=== PATIENT | male | born 1930 | race Caucasian/White ===

== ENCOUNTER 2016-12-05 16:55 | Inpatient (IN) | payer OTHER, MEDICARE ==
--- NOTE | 2016-12-05 16:57 | EDPHY ---
H & P HPI/ROS: CHIEF COMPLAINT: Diarrhea, fever, weakness. HISTORY OF PRESENT ILLNESS: The patient is an 86-year-old male presenting via EMS for weakness, fever, and diarrhea. He reports that 2 days ago, prior to a dentist appointment, he was given 1gm of Amoxicillin. Later that day, he developed a fever and constipation. Today he developed watery diarrhea, 4 episodes. Associated with general weakness and difficulty walking because of weakness. He usually uses a cane to walk, but is now having difficulty even when he uses his walker. These symptoms are similar to a previous time he took Amoxicillin. He denies vomiting, dizziness, abdominal pain, or other complaints. He was able to eat and drink small amounts today. REVIEW OF SYSTEMS: A complete 10-point review of systems was performed and is negative except for those items mentioned in the HPI. Past Medical/Surgical History: Chronic kidney disease stage IV, pneumonia, hypertension, glaucoma, hyperlipidemia, kidney stone, prostatis hypertrophy, cholecystectomy. Social History: Here with family. Physical Exam: General Appearance: Alert, pleasant Eyes: Pupils equal and round, no conjunctival pallor ENT, Mouth: Mucous membranes slightly dry Neck: Normal inspection Respiratory: Rales at both bases Cardiovascular: Regular rate and rhythm Gastrointestinal: Abdomen is soft and non-tender Neurological: A&O, nonfocal exam, gait not assessed Skin: Warm and dry, no rash Extremities: Nontender, no pedal edema Psychiatric: Mood and affect normal Constitutional: Initial Vital Signs Temperature (C) 38 C 12/05/16 17:05 Heart Rate 66 12/05/16 17:05 Respiratory Rate 18 12/05/16 17:05 Blood Pressure 139/65 H 12/05/16 17:05 O2 Sat (%) 92 12/05/16 17:05 O2 Delivery Mode Room Air Allergies/Adverse Reactions: furosemide [From Lasix] Allergy (Intermediate, Verified 05/04/16 17:08) Rash BRIAN Inhibitors Allergy (Verified 05/04/16 17:08) Home Medications: Medication Instructions Recorded Aspirin [Ecotrin] 81 mg PO MWF@2100 04/05/12 Fenofibrate [Tricor 145 mg (*)] 145 mg PO DAILY 04/05/12 Pantoprazole Sodium [Protonix 40mg 40 mg PO DAILY 04/05/12 (*)] amLODIPine BESYLATE [Norvasc 5 mg 5 mg PO BID@08,12 04/05/12 (*)] Cholecalciferol Vit D3 [Vitamin D3 2,000 units PO DAILY 12/28/13 (*)] Ezetimibe [Zetia 10 MG (*)] 10 mg PO DAILY 12/28/13 Bimatoprost 0.01% [Lumigan 0.01% 1 drops EACHEYE HS 05/04/16 (*)] Brimonidine/Timolol [Combigan (*)] 1 drop EACHEYE BID 05/04/16 Tamsulosin HCl [Flomax 0.4 MG (*)] 0.4 mg PO DAILY@18 PRN 05/04/16 hydrALAZINE [Apresoline] 2.5 tab PO TID 05/04/16 Acetaminophen [Tylenol 325mg (*)] 650 mg PO Q6 #0 tab 05/10/16 Temazepam [Restoril 15 MG (*)] 15 mg PO HS PRN #0 cap 05/10/16 B&C/Ferrous Fum/FA/D3/Zinc Ox 2 each PO DAILY 12/05/16 [Prorenal Vital Multivit Tab] FLUOROURACIL [FLUOROURACIL] 1 applic TP BID 12/05/16 Psyllium Husk (with Sugar) 12 g PO DAILY PRN 12/05/16 [Metamucil Packet] Medical Decision Making ED Course/Re-evaluation: This patient presents with acute diarrhea after taking amoxicillin, concerning for C diff colitis. IV normal saline bolus given. The patient was unable to give us a stool sample during his emergency department stay. Given his generalized weakness and advanced age, he will need to be admitted for IV fluids and observation. 1745: Consulted with hospitalist. Dr. Quach accepts admission. Differential Diagnosis: Differential diagnosis includes though it is not limited to appendicitis, cholecystitis, diverticulitis, pyelonephritis, bowel perforation, small bowel obstruction. - Data Points Laboratory Results: Laboratory Results 12/05/16 16:56 12/05/16 16:56 Medications Given: Discontinued Medications Sodium Chloride (Ns) 1,000 mls @ 0 mls/hr IV ONCE ONE PRN Reason: Wide Open Stop: 12/05/16 17:06 Last Admin: 12/05/16 18:08 Dose: Not Given Sodium Chloride (Ns) 500 mls @ 1,000 mls/hr IV ONCE ONE Stop: 12/05/16 18:37 Last Admin: 12/05/16 18:09 Dose: 500 mls Departure - Departure Disposition: [facility] Acute Clinical Impression: Weakness Diarrhea Qualifiers: Diarrhea type: unspecified type Qualified Code(s): R19.7 - Diarrhea, unspecified Condition: Fair Report Scribed for: Mikayla Manuel Report Scribed by: Giorgio Jenkins Date of Report: 12/05/16 Time of Report: 16:54 Physician Review and Approval Statement: 12/05/16 16:54 Portions of this note were transcribed by a medical records field technician. I personally performed a history, physical exam, medical decision making, and confirmed accuracy of information the transcribed note.
[2016-12-05] MEDS ORDERED: NS 1,000 ML IV ONE (17:05)
[2016-12-05 17:28] LABS: % IMMATURE GRANULYOCYTES 0.5 % (0.0-1.1); ABSOLUTE IMMATURE GRANULOCYTES 0.05 10^3/uL (0.00-0.10); ADD DIFF? NO; ADD MORPH? NO; ADD SCAN? NO; ANION GAP 12 mEq/L (8-16); ATYPICAL LYMPHOCYTE FLAG 0 (0-99); CALCIUM 9.5 mg/dL (8.5-10.4); CARBON DIOXIDE 21 mEq/l (22-31); CHLORIDE 105 mEq/L (97-110); CREATININE 3.1 mg/dL (0.7-1.3); FRAGMENT RBC FLAG 0 (0-99); GLOMERULAR FILTRATION RATE 19; GLUCOSE 83 mg/dL (70-100); HEMATOCRIT 39.3 % (40.0-51.0); HEMOGLOBIN 13.1 g/dL (13.7-17.5); LEFT SHIFT FLG 0 (0-99); LIPEMIA HEMOLYSIS FLAG 80 (0-99); MEAN CELL HEMOGLOBIN 29.6 pg (27.9-34.1); MEAN CELL HEMOGLOBIN CONCENTR. 33.3 g/dL (32.4-36.7); MEAN CELL VOLUME 88.9 fL (81.5-99.8); MEAN PLATELET VOLUME 9.6 fL (8.7-11.7); PLATELET CLUMPS FLAG 10 (0-99); PLATELET COUNT 321 10^3/uL (150-400); POTASSIUM 4.4 mEq/L (3.5-5.2); RED BLOOD CELL COUNT 4.42 10^6/uL (4.40-6.38); SODIUM 138 mEq/L (134-144)
[2016-12-05] MEDS ORDERED: NS 500 ML IV ONE (18:08)
[2016-12-05] MEDS ORDERED: ONDANSETRON DISINTEGRATING 4 MG TAB PO PRN (18:22)
[2016-12-05] MEDS ORDERED: ONDANSETRON 4 MG/2 ML VIAL IVP PRN (18:22)
[2016-12-05 19:00] LABS: COLOR YELLOW; LEUKOCYTE ESTERASE,URINE NEGATIVE (NEGATIVE); NITRITE,URINE NEGATIVE (NEGATIVE)
--- NOTE | 2016-12-05 19:14 | GHP ---
DATE OF ADMISSION: 12/05/2016 CHIEF COMPLAINT: Diarrhea and weakness. HISTORY OF PRESENT ILLNESS: The patient is an 86-year-old male with history of CKD, hypertension and BPH presenting with weakness and diarrhea. Most of the history is per his daughter, whom he lives with. On Saturday prior to a dentist appointment he had been given 1 g of amoxicillin and then later started developing fevers. Today, he developed watery diarrhea, 4 episodes; no melena or bright red blood per rectum. Denies nausea and vomiting. Per daughter, temperature at home was 102 with chills. He denies chest pain, shortness of breath, cough or other URI symptoms. His grandson had a fever last week. Per daughter, he has not been as stable on his feet since the hip replacement in April. It has gotten worse over the last week. He uses a cane but has been now using his walker given increased weakness. Also endorses decreased p.o. intake. Mild headache today. Daughter reports he is having increased urinary incontinence over the last couple days. REVIEW OF SYSTEMS: I completed a 10-point review of systems, negative except as noted in HPI. PAST MEDICAL HISTORY: 1. CKD (baseline is 2.5 per review of old records.). 2. History of syncope. 3. History of constipation. 4. Hypertension. 5. Glaucoma. 6. BPH. 7. Pulmonary hypertension. 8. Actinic keratosis. PAST SURGICAL HISTORY: 1. Right hip replacement in April 2016. 2. Cholecystectomy. 3. Cataract surgery. FAMILY HISTORY: Mother with breast cancer. Father with CVA. ALLERGIES: BRIAN inhibitor and Lasix. MEDICATIONS: 1. Fluorouracil topical. 2. Tramadol 50 mg q.6h p.r.n. 3. Oxycodone 2.5-5 mg q.4. p.r.n. 4. Hydralazine 25 t.i.d. 5. Amlodipine 5 mg b.i.d. 6. Restoril 15 mg q.h.s. 7. Flomax 0.4 mg daily. 8. Senna b.i.d. 9. Promethazine as needed. 10. MiraLAX. 11. Protonix 40 mg daily. 12. [place] 5/325. 13. Vitamin D. 14. Combigan eyedrops. 15. Lumigan eyedrops. 16. Aspirin 81 mg Saturday. 17. Tylenol p.r.n. PHYSICAL EXAM: VITAL SIGNS: Temperature is 38.0, now 37.4, blood pressure 139/ 65, heart rate in the 60s. Respirations 18 and 92% on room air. GENERAL: Mildly diaphoretic, no acute distress. HEENT: PERRLA. EOMI. Dry mucous membranes. CARDIOVASCULAR: Regular rate and rhythm. No murmurs, gallops, or rubs. LUNGS: Few crackles, left lower lung base. ABDOMEN: Soft, nontender, nondistended. Positive bowel sounds. : No suprapubic or CVA tenderness. No [place]. MUSCULOSKELETAL: Moving all 4 extremities. NEURO: 2 through 12 intact. PSYCH: Alert and oriented x3. LABORATORY DATA: WBC 10.3, hemoglobin 13, hematocrit 39, platelets 321. Sodium 138, potassium 4.4, chloride 105, carbon dioxide 21, BUN is 39, creatinine is 3.9, glucose is 83, calcium is 9.5. UA is pending. ASSESSMENT AND PLAN: 1. Fever: Broad differential including gastroenteritis versus pneumonia versus urinary tract infection. Check Clostridium difficile and UA, CXR. Blood cultures are pending. Per daughter, PCP checked influenza and this was negative. 2. Diarrhea: Differential includes reaction to recent antibiotics vs. Clostridium difficile versus a viral infection. Supportive treatment with gentle IV fluids given chronic kidney disease. 3. Acute on chronic kidney disease: Creatinine is elevated 3.1, with a baseline of 2.5. This is due to decreased p.o. intake and diarrhea. Will hydrate gently. 4. Benign prostatic hypertrophy: Continue Flomax. 5. Benign hypertension. We will hold antihypertensives at this time. 6. Mild metabolic acidosis secondary to acute kidney injury and dehydration. Will give gentle IV fluids. 7. Glaucoma. Continue home eyedrops. 8. Chronic pain: Continue when medications. 9. Weakness: Denies recent falls. Suspect secondary to acute illness but not doing well since his surgery in April. Will consult PT/OT. 10. Diet: Regular. 11. Deep venous thrombosis prophylaxis: Subcutaneous heparin with chronic kidney disease. 12. Disposition: Patient warrants inpatient admission given inability to ambulate due to weakness. Warrants IV fluids and awaiting culture studies. /[id number]/MODL MTDD
[2016-12-05 19:35] LABS: WBC,URINE NONE SEEN /hpf (0-3)
[2016-12-05] MEDS ORDERED: PSYLLIUM METAMUCIL 1 PKT PO PRN (20:02)
[2016-12-05] MEDS ORDERED: TEMAZEPAM 15 MG CAP PO PRN (20:02)
[2016-12-05] MEDS: NS 1,000 ML IV SCH (21:04)
[2016-12-05] MEDS: HEPARIN 5,000 UNIT/0.5 ML SYR SC SCH (21:04)
[2016-12-05] MEDS: ASPIRIN EC 81 MG TAB PO SCH (21:04)
[2016-12-05] MEDS: FLUOROURACIL TP SCH (21:05)
[2016-12-05] MEDS: BRIMONIDINE/TIMOLOL 5 ML OPHT.BTL EACHEYE SCH (21:05)
[2016-12-06] MEDS: ACETAMINOPHEN 325 MG TAB PO PRN ×2 (00:56→14:13)
[2016-12-06 06:02] LABS: HEMATOCRIT 35.8 % (40.0-51.0); HEMOGLOBIN 11.6 g/dL (13.7-17.5); MEAN CELL HEMOGLOBIN 29.5 pg (27.9-34.1); MEAN CELL HEMOGLOBIN CONCENTR. 32.4 g/dL (32.4-36.7); MEAN CELL VOLUME 91.1 fL (81.5-99.8); RED BLOOD CELL COUNT 3.93 10^6/uL (4.40-6.38); RED CELL DISTRIBUTION WIDTH 14.7 % (11.5-15.2)
[2016-12-06 06:16] LABS: ANION GAP 9 mEq/L (8-16); CALCIUM 8.8 mg/dL (8.5-10.4); CARBON DIOXIDE 20 mEq/l (22-31); CHLORIDE 110 mEq/L (97-110); GLOMERULAR FILTRATION RATE 20; GLUCOSE 70 mg/dL (70-100); POTASSIUM 4.3 mEq/L (3.5-5.2); SODIUM 139 mEq/L (134-144)
[2016-12-06] MEDS: HEPARIN 5,000 UNIT/0.5 ML SYR SC SCH ×3 (07:36→22:28)
[2016-12-06] MEDS: EZETIMIBE 10 MG TAB PO SCH (09:53)
[2016-12-06] MEDS: CHOLECALCIFEROL VIT D3 2,000 UNITS TAB/CAP PO SCH (09:53)
[2016-12-06] MEDS: PANTOPRAZOLE SODIUM 40 MG TAB PO SCH (09:53)
[2016-12-06] MEDS: BRIMONIDINE/TIMOLOL 5 ML OPHT.BTL EACHEYE SCH ×2 (09:54→19:57)
[2016-12-06] MEDS: FENOFIBRATE 145 MG TAB PO SCH (09:59)
[2016-12-06] MEDS: [UNRECOGNIZED DRUG - MIXTURE] PO SCH (11:03)
[2016-12-06] MEDS: FLUOROURACIL TP SCH ×2 (11:03→19:58)
--- NOTE | 2016-12-06 13:56 | HOSPPROG ---
Hospitalist Progress Note Assessment/Plan: 86 yo M w ckfd admitted w nuase/vom/diarrhea/fever and JEANNE JEANNE: prenal continue ivf fever: suspect viral gastroenteritis cxr clear (interp bby me) no tooth or mouth pain UA w/out white cells diarrhea: check stool culture and cdiff proph: sc heparin CKD baseline 2.5 dispo: inpt glaucoma: eye drops Subjective: low grade temps this AM. diarrhea stopped. still nauseated Objective: Vital Signs Temp Pulse Resp BP Pulse Ox 37.7 C 67 20 152/69 H 95 12/06/16 11:00 12/06/16 09:05 12/06/16 09:05 12/06/16 09:05 12/06/16 09:05 Laboratory Results 12/06/16 05:05 12/06/16 05:05 12/05/16 12/06/16 12/07/16 05:59 05:59 05:59 Intake Total 1559 Output Total 775 800 Balance 784 -800 - Physical Exam Constitutional: no apparent distress, appears nourished Eyes: PERRL, anicteric sclera Ears, Nose, Mouth, Throat: moist mucous membranes, hearing normal Cardiovascular: regular rate and rhythym, no murmur, rub, or gallop Respiratory: no respiratory distress, no rales or rhonchi, clear to auscultation Gastrointestinal: distension (soft, + BS, no rebound or guard), other Genitourinary: No reid in urethra Skin: warm, normal color Musculoskeletal: full muscle strength, no muscle tenderness Neurologic: AAOx3, sensation intact bilaterally ICD10 Worksheet Patient Problems: Problems Problem Status Onset Diarrhea Acute Weakness Acute Hyperplasia of prostate Active Renal failure syndrome Active Retention of urine Active Urinary tract infectious disease Active chronic renal Active Chronic kidney disease Acute Fall Acute Fracture of femoral neck, right, closed Acute
[2016-12-06] MEDS ORDERED: TAMSULOSIN HCL 0.4 MG CAP PO PRN (18:00)
[2016-12-06] MEDS: BIMATOPROST 0.01% 2.5 ML OPHT.BTL EACHEYE SCH (22:28)
[2016-12-07] MEDS: HEPARIN 5,000 UNIT/0.5 ML SYR SC SCH ×3 (04:58→20:16)
[2016-12-07] MEDS: NS 1,000 ML IV SCH (04:58)
[2016-12-07 06:21] LABS: ANION GAP 10 mEq/L (8-16); CALCIUM 8.8 mg/dL (8.5-10.4); CARBON DIOXIDE 19 mEq/l (22-31); CHLORIDE 110 mEq/L (97-110); CREATININE 2.8 mg/dL (0.7-1.3); GLOMERULAR FILTRATION RATE 21; GLUCOSE 88 mg/dL (70-100); POTASSIUM 4.3 mEq/L (3.5-5.2); SODIUM 139 mEq/L (134-144)
[2016-12-07] MEDS: EZETIMIBE 10 MG TAB PO SCH (08:30)
[2016-12-07] MEDS: PANTOPRAZOLE SODIUM 40 MG TAB PO SCH (08:31)
[2016-12-07] MEDS: CHOLECALCIFEROL VIT D3 2,000 UNITS TAB/CAP PO SCH (08:31)
[2016-12-07] MEDS: FENOFIBRATE 145 MG TAB PO SCH (08:31)
[2016-12-07] MEDS: [UNRECOGNIZED DRUG - MIXTURE] PO SCH (12:20)
[2016-12-07] MEDS: BRIMONIDINE/TIMOLOL 5 ML OPHT.BTL EACHEYE SCH ×2 (14:12→20:18)
[2016-12-07] MEDS: FLUOROURACIL TP SCH ×3 (14:13→20:18)
--- NOTE | 2016-12-07 15:20 | HOSPPROG ---
Hospitalist Progress Note Assessment/Plan: 86 yo M w ckfd admitted w nuase/vom/diarrhea/fever and JEANNE JEANNE: prenal continue ivf approaching baseline of 2.5 fever: suspect viral gastroenteritis cxr clear (interp bby me) no tooth or mouth pain UA w/out white cells diarrhea: cdiff + start po vanc proph: sc heparin CKD baseline 2.5 dispo: inpt glaucoma: eye drops Subjective: stool + for cdiff. feeling a bit better Objective: Vital Signs Temp Pulse Resp BP Pulse Ox 36.8 C 62 18 128/76 H 94 12/07/16 08:15 12/07/16 08:15 12/07/16 08:15 12/07/16 08:15 12/07/16 09:27 Laboratory Results 12/06/16 05:05 12/07/16 05:25 12/06/16 12/07/16 12/08/16 05:59 05:59 05:59 Intake Total 1559 1600 Output Total 775 2300 475 Balance 784 -012 -641 - Physical Exam Constitutional: no apparent distress, appears nourished Eyes: PERRL, anicteric sclera Ears, Nose, Mouth, Throat: moist mucous membranes, hearing normal Cardiovascular: regular rate and rhythym, no murmur, rub, or gallop Respiratory: no respiratory distress, no rales or rhonchi Gastrointestinal: normoactive bowel sounds, soft, non-tender abdomen Genitourinary: No reid in urethra Skin: warm, normal color Musculoskeletal: full muscle strength Neurologic: AAOx3 ICD10 Worksheet Patient Problems: Problems Problem Status Onset C. difficile diarrhea Acute ~12/07/16 Diarrhea Acute Weakness Acute Hyperplasia of prostate Active Renal failure syndrome Active Retention of urine Active Urinary tract infectious disease Active chronic renal Active Chronic kidney disease Acute Fall Acute Fracture of femoral neck, right, closed Acute
[2016-12-07] MEDS: VANCOMYCIN 125 MG/2.5 ML UDL PO SCH ×2 (15:29→20:17)
[2016-12-07] MEDS: ASPIRIN EC 81 MG TAB PO SCH (20:16)
[2016-12-07] MEDS: BIMATOPROST 0.01% 2.5 ML OPHT.BTL EACHEYE SCH (20:18)
[2016-12-08] MEDS: NS 1,000 ML IV SCH (00:05)
[2016-12-08] MEDS: HEPARIN 5,000 UNIT/0.5 ML SYR SC SCH ×3 (05:05→20:13)
[2016-12-08] MEDS: VANCOMYCIN 125 MG/2.5 ML UDL PO SCH ×4 (05:06→20:13)
[2016-12-08 05:30] LABS: ANION GAP 9 mEq/L (8-16); CALCIUM 8.7 mg/dL (8.5-10.4); CARBON DIOXIDE 18 mEq/l (22-31); CHLORIDE 111 mEq/L (97-110); CREATININE 2.5 mg/dL (0.7-1.3); GLOMERULAR FILTRATION RATE 24; GLUCOSE 84 mg/dL (70-100); POTASSIUM 4.6 mEq/L (3.5-5.2); SODIUM 138 mEq/L (134-144)
[2016-12-08] MEDS: EZETIMIBE 10 MG TAB PO SCH (10:16)
[2016-12-08] MEDS: FENOFIBRATE 145 MG TAB PO SCH (10:16)
[2016-12-08] MEDS: CHOLECALCIFEROL VIT D3 2,000 UNITS TAB/CAP PO SCH (10:16)
[2016-12-08] MEDS: [UNRECOGNIZED DRUG - MIXTURE] PO SCH (10:16)
[2016-12-08] MEDS: PANTOPRAZOLE SODIUM 40 MG TAB PO SCH (10:16)
[2016-12-08] MEDS: BRIMONIDINE/TIMOLOL 5 ML OPHT.BTL EACHEYE SCH ×2 (10:22→20:13)
[2016-12-08] MEDS: FLUOROURACIL TP SCH ×2 (12:39→20:12)
--- NOTE | 2016-12-08 13:05 | HOSPPROG ---
Hospitalist Progress Note Assessment/Plan: 86 yo M w ckfd admitted w nuase/vom/diarrhea/fever and JEANNE JEANNE: prenal at baseline dc IVF fever: cdiff prophylactic abx prior to dental procedure: this is 2/2 prosthetic hip guidelines do not support antibiotic prophylaxis in this setting htn: restart meds diarrhea: cdiff + start po vanc proph: sc heparin CKD baseline 2.5 dispo: inpt glaucoma: eye drops Subjective: diarrhea decreased. weak Objective: Vital Signs Temp Pulse Resp BP Pulse Ox 36.8 C 58 L 16 149/79 H 96 12/08/16 08:54 12/08/16 09:50 12/08/16 08:54 12/08/16 08:54 12/08/16 09:50 Laboratory Results 12/06/16 05:05 12/08/16 04:35 12/07/16 12/08/16 12/09/16 05:59 05:59 05:59 Intake Total 1600 1801 Output Total 2300 1175 Balance -700 626 - Physical Exam Constitutional: no apparent distress, appears nourished Eyes: PERRL, anicteric sclera Ears, Nose, Mouth, Throat: moist mucous membranes, hearing normal, no oral mucosal ulcers, No oral thrush Cardiovascular: no murmur, rub, or gallop, systolic murmur Respiratory: no respiratory distress, no rales or rhonchi Gastrointestinal: normoactive bowel sounds, soft, non-tender abdomen, No guarding, No rebound Genitourinary: no bladder fullness, No reid in urethra Skin: warm, normal color Musculoskeletal: No full muscle strength Neurologic: AAOx3 ICD10 Worksheet Patient Problems: Problems Problem Status Onset C. difficile diarrhea Acute ~12/07/16 Diarrhea Acute Weakness Acute Hyperplasia of prostate Active Renal failure syndrome Active Retention of urine Active Urinary tract infectious disease Active chronic renal Active Chronic kidney disease Acute Fall Acute Fracture of femoral neck, right, closed Acute
[2016-12-08] MEDS: hydrALAZINE 25 MG TAB PO SCH ×2 (16:30→20:19)
[2016-12-08] MEDS: BIMATOPROST 0.01% 2.5 ML OPHT.BTL EACHEYE SCH (20:12)
[2016-12-09] MEDS: HEPARIN 5,000 UNIT/0.5 ML SYR SC SCH ×3 (05:02→21:43)
[2016-12-09] MEDS: VANCOMYCIN 125 MG/2.5 ML UDL PO SCH ×4 (05:03→21:43)
[2016-12-09] MEDS: CHOLECALCIFEROL VIT D3 2,000 UNITS TAB/CAP PO SCH (08:48)
[2016-12-09] MEDS: EZETIMIBE 10 MG TAB PO SCH (08:48)
[2016-12-09] MEDS: PANTOPRAZOLE SODIUM 40 MG TAB PO SCH (08:48)
[2016-12-09] MEDS: FENOFIBRATE 145 MG TAB PO SCH (08:48)
[2016-12-09] MEDS: amLODIPine BESYLATE 5 MG TAB PO SCH ×2 (08:48→12:43)
[2016-12-09] MEDS: hydrALAZINE 25 MG TAB PO SCH ×3 (08:48→21:43)
[2016-12-09] MEDS: [UNRECOGNIZED DRUG - MIXTURE] PO SCH (08:49)
[2016-12-09] MEDS: BRIMONIDINE/TIMOLOL 5 ML OPHT.BTL EACHEYE SCH ×2 (08:52→21:45)
--- NOTE | 2016-12-09 12:55 | HOSPPROG ---
Hospitalist Progress Note Assessment/Plan: 86 yo M w ckfd admitted w nuase/vom/diarrhea/fever and JEANNE JEANNE: prenal at baseline dc IVF fever: cdiff prophylactic abx prior to dental procedure: this is 2/2 prosthetic hip guidelines do not support antibiotic prophylaxis in this setting htn: restart meds diarrhea: cdiff + start po vanc day 3 po vanc proph: sc heparin CKD baseline 2.5 dispo: await snf glaucoma: eye drops Subjective: diarrhea resolved Objective: Vital Signs Temp Pulse Resp BP Pulse Ox 36.8 C 58 L 20 158/87 H 91 L 12/09/16 08:26 12/09/16 08:26 12/09/16 08:26 12/09/16 12:43 12/09/16 08:26 Laboratory Results 12/06/16 05:05 12/08/16 04:35 12/08/16 12/09/16 12/10/16 05:59 05:59 05:59 Intake Total 1801 1600 Output Total 1175 720 400 Balance 626 880 -400 - Physical Exam Constitutional: no apparent distress, appears nourished Eyes: PERRL, anicteric sclera Ears, Nose, Mouth, Throat: moist mucous membranes, hearing normal Cardiovascular: regular rate and rhythym, no murmur, rub, or gallop Respiratory: no respiratory distress, no rales or rhonchi Gastrointestinal: No guarding, No rebound Genitourinary: No reid in urethra Skin: warm, normal color Musculoskeletal: full muscle strength Neurologic: AAOx3 ICD10 Worksheet Patient Problems: Problems Problem Status Onset C. difficile diarrhea Acute ~12/07/16 Diarrhea Acute Weakness Acute Hyperplasia of prostate Active Renal failure syndrome Active Retention of urine Active Urinary tract infectious disease Active chronic renal Active Chronic kidney disease Acute Fall Acute Fracture of femoral neck, right, closed Acute
[2016-12-09] MEDS: FLUOROURACIL TP SCH ×2 (12:56→21:45)
[2016-12-09] MEDS: BIMATOPROST 0.01% 2.5 ML OPHT.BTL EACHEYE SCH (21:45)
[2016-12-10 06:14] VITALS: TEMP 97.8
[2016-12-10] MEDS: HEPARIN 5,000 UNIT/0.5 ML SYR SC SCH ×2 (06:19→13:30)
[2016-12-10] MEDS: VANCOMYCIN 125 MG/2.5 ML UDL PO SCH ×2 (06:19→12:27)
[2016-12-10 07:35] VITALS: RESP 22
[2016-12-10] MEDS: FENOFIBRATE 145 MG TAB PO SCH (08:26)
[2016-12-10] MEDS: EZETIMIBE 10 MG TAB PO SCH (08:27)
[2016-12-10] MEDS: CHOLECALCIFEROL VIT D3 2,000 UNITS TAB/CAP PO SCH (08:27)
[2016-12-10] MEDS: PANTOPRAZOLE SODIUM 40 MG TAB PO SCH (08:27)
[2016-12-10] MEDS: amLODIPine BESYLATE 5 MG TAB PO SCH ×2 (08:29→12:34)
[2016-12-10] MEDS: hydrALAZINE 25 MG TAB PO SCH (08:30)
[2016-12-10] MEDS: BRIMONIDINE/TIMOLOL 5 ML OPHT.BTL EACHEYE SCH (08:33)
[2016-12-10] MEDS: FLUOROURACIL TP SCH (08:37)
--- NOTE | 2016-12-10 09:52 | PDDCSUM ---
Discharge Summary Discharge Summary: Dates of service 12/05-11/30/16 Discharge dx: # c diff colitis # jeanne on ckd # generalized weakness # htn Consultations/procedures: none Hospital course by problem: c diff: with diarrhea decreasing, will continue PO vanc x total 10 days, triggered by abx use JEANNE on CKD: pre renal in setting of above, back to baseline creatinine of 2.5 fever: cdiff prophylactic abx prior to dental procedure: this is 2/2 prosthetic hip guidelines do not support antibiotic prophylaxis in this setting htn: continue home meds Dispo: dc to snf Meds: see EHR > 35 minutes spent in dc of patient more than half in coordination of care and face to face counseling of patient and his family
[2016-12-10] MEDS: [UNRECOGNIZED DRUG - MIXTURE] PO SCH (10:44)
--- NOTE | 2016-12-10 11:08 | PDIAF ---
- Diagnosis Code Status: Do Not Resuscitate - Medication Management Discharge Medications: Medications to Continue on Transfer Aspirin [Ecotrin] 81 mg PO MWF@2100 04/05/12 [Last Taken 12/05/16] Fenofibrate [Tricor 145 mg (*)] 145 mg PO DAILY 04/05/12 [Last Taken 12/05/16] Pantoprazole Sodium [Protonix 40mg (*)] 40 mg PO DAILY 04/05/12 [Last Taken ] amLODIPine BESYLATE [Norvasc 5 mg (*)] 5 mg PO BID@08,12 04/05/12 [Last Taken ] Cholecalciferol Vit D3 [Vitamin D3 (*)] 2,000 units PO DAILY 12/28/13 [Last Taken 12/05/16] Ezetimibe [Zetia 10 MG (*)] 10 mg PO DAILY 12/28/13 [Last Taken 12/05/16] Bimatoprost 0.01% [Lumigan 0.01% (*)] 1 drops EACHEYE HS 05/04/16 [Last Taken ] Brimonidine/Timolol [Combigan (*)] 1 drop EACHEYE BID 05/04/16 [Last Taken 12/05] Tamsulosin HCl [Flomax 0.4 MG (*)] 0.4 mg PO DAILY@18 PRN 05/04/16 [Last Taken 05/02/16] hydrALAZINE [Apresoline] 2.5 tab PO TID 05/04/16 [Last Taken 12/05/16] Acetaminophen [Tylenol 325mg (*)] 650 mg PO Q6 #0 tab 05/10/16 [Last Taken Unknown] Temazepam [Restoril 15 MG (*)] 15 mg PO HS PRN #0 cap 05/10/16 [Last Taken Unknown] B&C/Ferrous Fum/FA/D3/Zinc Ox [Prorenal Multivitamin Tablet] 2 each PO DAILY [Last Taken Unknown] FLUOROURACIL 1 applic TP BID 12/05/16 [Last Taken 12/05/16] Psyllium Husk (with Sugar) [Metamucil Packet] 12 g PO DAILY PRN 12/05/16 [Last Taken Unknown] Vancomycin [Vancocin Oral Liquid] 250 mg PO QID 5 Days 12/10/16 [Last Taken Unknown] Discharge Medications: Refer to the Discharge Home Medication list for PRN reason. - Orders Services needed: Registered Nurse, Certified Field Human Resources Manager, Physical Therapy, Occupational Therapy Diet Recommendation: no restrictions on diet - Labs/Radiology BMP Date: 12/17/16 - Follow Up Care Current Providers and Referrals: Ra Beltran MD [Primary Care Provider] - As per Instructions
[2016-12-10 12:30] VITALS: BP 111/63; PULSE 52
[2016-12-10 13:38] VITALS: O2SAT 93
== END 2016-12-10 14:05 | DRG 372 ==
LOC: EDUNIT# → F1N 18:25
PROVIDERS: ADMIT Internal Medicine; ATTEND Internal Medicine
DX: A04.7 Enterocolitis due to Clostridium difficile (principal); N17.9 Acute kidney failure, unspecified; E87.2 Acidosis; I12.9 Hypertensive chronic kidney disease with stage 1 through stage 4 chronic kidney disease, or unspecified chronic kidney disease; N18.4 Chronic kidney disease, stage 4 (severe); E78.5 Hyperlipidemia, unspecified; N40.0 Benign prostatic hyperplasia without lower urinary tract symptoms; Z87.01 Personal history of pneumonia (recurrent); Z96.641 Presence of right artificial hip joint; Z87.442 Personal history of urinary calculi
CPT/HCPCS: 97116-GP; 97161-GP; 97166-GO; 97530-GP; 97535-GO; G8978-GP-CJ; G8979-GP-CI; G8987-GO-CJ; G8988-GO-CI

== ENCOUNTER 2017-01-11 15:35 | Emergency (ER) | payer OTHER, MEDICARE ==
[2017-01-11 15:45] VITALS: TEMP 98.1
--- NOTE | 2017-01-11 15:53 | EDPHY ---
H & P Stated Complaint: fever /weak Time Seen by Provider: 01/11/17 15:52 HPI/ROS: CHIEF COMPLAINT: Fever, malaise HISTORY OF PRESENT ILLNESS: The patient presents to the ED for evaluation of fever and malaise for the past 2 days. The patient denies nausea, vomiting, diarrhea, pain, dysuria, cough, rash or other localizing source of infection. Patient did have a history of C diff colitis treated approximately 1 month ago. The patient has a history of chronic renal insufficiency. The patient denies recent travel outside the [place] or surgical procedures. REVIEW OF SYSTEMS: A comprehensive 10 point review of systems is otherwise negative aside from elements mentioned in the history of present illness. Source: Patient Exam Limitations: No limitations - Personal History Current Tetanus/Diphtheria Vaccine: Unsure - Medical/Surgical History Hx Asthma: No Hx Chronic Respiratory Disease: No Hx Diabetes: No Hx Cardiac Disease: Yes Hx Renal Disease: Yes Hx Cirrhosis: No Hx Alcoholism: No Hx HIV/AIDS: No Hx Splenectomy or Spleen Trauma: No Other PMH: MEDICAL- ESRD, HTN, HLD, KIDNEY STONES, UTI. SURGICAL- LITHOTRIPSY, CATARACT/renal failure - Social History Smoking Status: Former smoker - Physical Exam Exam: General Appearance: Alert, no distress Eyes: Pupils equal and round no pallor or injection ENT, Mouth: Mucous membranes moist Respiratory: There are no retractions, lungs are clear to auscultation Cardiovascular: Regular rate and rhythm Gastrointestinal: Abdomen is soft and nontender, no masses, bowel sounds normal Neurological: A&O, normal motor function, normal sensory exam, normal cranial nerves Skin: Warm and dry, no rashes Musculoskeletal: Neck is supple nontender Extremities: symmetrical, full range of motion Constitutional: Initial Vital Signs Temperature (C) 36.7 C 01/11/17 15:43 Heart Rate 83 01/11/17 15:43 Respiratory Rate 23 H 01/11/17 15:43 Blood Pressure 103/53 L 01/11/17 15:43 O2 Sat (%) 92 01/11/17 15:43 O2 Delivery Mode Room Air Allergies/Adverse Reactions: furosemide [From Lasix] Allergy (Intermediate, Verified 01/11/17 15:42) Rash BRIAN Inhibitors Allergy (Verified 01/11/17 15:42) Home Medications: Medication Instructions Recorded Aspirin [Ecotrin] 81 mg PO MWF@2100 04/05/12 Fenofibrate [Tricor 145 mg (*)] 145 mg PO DAILY 04/05/12 Pantoprazole Sodium [Protonix 40mg 40 mg PO DAILY 04/05/12 (*)] amLODIPine BESYLATE [Norvasc 5 mg 5 mg PO BID@08,12 04/05/12 (*)] Cholecalciferol Vit D3 [Vitamin D3 2,000 units PO DAILY 12/28/13 (*)] Ezetimibe [Zetia 10 MG (*)] 10 mg PO DAILY 12/28/13 Bimatoprost 0.01% [Lumigan 0.01% 1 drops EACHEYE HS 05/04/16 (*)] Brimonidine/Timolol [Combigan (*)] 1 drop EACHEYE BID 05/04/16 Tamsulosin HCl [Flomax 0.4 MG (*)] 0.4 mg PO DAILY@18 PRN 05/04/16 hydrALAZINE [Apresoline] 2.5 tab PO TID 05/04/16 Acetaminophen [Tylenol 325mg (*)] 650 mg PO Q6 #0 tab 05/10/16 Temazepam [Restoril 15 MG (*)] 15 mg PO HS PRN #0 cap 05/10/16 B,C/Ferrous Fum/FA/D3/Zinc Ox 2 each PO DAILY 12/05/16 [Prorenal Multivitamin Tablet] FLUOROURACIL 1 applic TP BID 12/05/16 Psyllium Husk (with Sugar) 12 g PO DAILY PRN 12/05/16 [Metamucil Packet] Medical Decision Making ED Course/Re-evaluation: The patient presents to the ED for evaluation of a fever for the past 2 days with reported temperatures up to 102.5 at home. The patient has no localizing signs of infection in the ED. The patient is noted to have chronic renal insufficiency with a creatinine of 2.3. I reviewed the patient's past medical records including his hospitalization in November. The patient had blood cultures x2 obtained. The patient presents to the ED with a 2 day history of fever without source. The patient is afebrile in the emergency department. He does have a slight leukocytosis. His venous lactate is reassuring and normal. The patient does have chronic renal insufficiency. His urinalysis demonstrates no evidence of an infection. The patient has no pulmonary complaints cough, congestion or dyspnea. The patient did have an IV established. He received 2 L of normal saline. The patient was re-evaluated at 6:30 p.m.. He continues to be afebrile and has been afebrile throughout his stay in the ED. At this point time the source of his fever is uncertain. Blood cultures are pending. The patient was offered admission to the hospital however he prefers to go home. I do feel that this is reasonable. He is quite comfortable returning for any progressive symptoms, development of new symptoms such as cough rash or severe headache. Or generalized worsening conditions. Differential Diagnosis: Differential diagnosis considered includes urinary tract infection, renal failure, bacteremia, viral syndrome, metabolic abnormality - Data Points Laboratory Results: Laboratory Results 01/11/17 16:00 01/11/17 16:00 01/11/17 01/11/17 01/11/17 17:42 16:00 16:00 WBC 14.47 10^3/uL H 10^3/uL (3.80-9.50) RBC 4.21 10^6/uL L 10^6/uL (4.40-6.38) Hgb 12.5 g/dL L g/dL (13.7-17.5) Hct 37.3 % L % (40.0-51.0) MCV 88.6 fL fL (81.5-99.8) MCH 29.7 pg pg (27.9-34.1) MCHC 33.5 g/dL g/dL (32.4-36.7) RDW 14.8 % % (11.5-15.2) Plt Count 318 10^3/uL 10^3/uL (150-400) MPV 9.6 fL fL (8.7-11.7) Neut % (Auto) 78.4 % H % (39.3-74.2) Lymph % (Auto) 8.4 % L % (15.0-45.0) [place] % (Auto) 10.0 % % (4.5-13.0) Eos % (Auto) 2.0 % % (0.6-7.6) Baso % (Auto) 0.5 % % (0.3-1.7) Nucleat RBC Rel Count 0.0 % % (0.0-0.2) Absolute Neuts (auto) 11.35 10^3/uL H 10^3/uL (1.70-6.50) Absolute Lymphs (auto) 1.22 10^3/uL 10^3/uL (1.00-3.00) Absolute Monos (auto) 1.44 10^3/uL H 10^3/uL (0.30-0.80) Absolute Eos (auto) 0.29 10^3/uL 10^3/uL (0.03-0.40) Absolute Basos (auto) 0.07 10^3/uL 10^3/uL (0.02-0.10) Absolute Nucleated RBC 0.00 10^3/uL 10^3/uL (0-0.01) Immature Gran % 0.7 % % (0.0-1.1) Immature Gran # 0.10 10^3/uL 10^3/uL (0.00-0.10) VBG Lactic Acid Sodium 133 mEq/L L mEq/L (134-144) Potassium 4.7 mEq/L mEq/L (3.5-5.2) Chloride 103 mEq/L mEq/L (97-110) Carbon Dioxide 19 mEq/l L mEq/l (22-31) Anion Gap 11 mEq/L mEq/L (8-16) BUN 31 mg/dL H mg/dL (7-23) Creatinine 2.3 mg/dL H mg/dL (0.7-1.3) Estimated GFR 27 Glucose 121 mg/dL H mg/dL (70-100) Calcium 9.4 mg/dL mg/dL (8.5-10.4) Urine Color YELLOW Urine Appearance CLEAR Urine pH 5.0 (5.0-7.5) Ur Specific [place] 1.014 (1.002-1.030) Urine Protein 2+ H (NEGATIVE) Urine Ketones NEGATIVE (NEGATIVE) Urine Blood NEGATIVE (NEGATIVE) Urine Nitrate NEGATIVE (NEGATIVE) Urine Bilirubin NEGATIVE (NEGATIVE) Urine Urobilinogen NEGATIVE EU EU (0.2-1.0) Ur Leukocyte Esterase NEGATIVE (NEGATIVE) Urine RBC 1-3 /hpf /hpf (0-3) Urine WBC 1-3 /hpf /hpf (0-3) Ur Epithelial Cells TRACE /lpf /lpf (NONE-1+) Urine Mucus TRACE /lpf /lpf (NONE-1+) Ur Culture Indicated? NOT INDICATED (NI) Urine Glucose NEGATIVE (NEGATIVE) 01/11/17 16:00 WBC RBC Hgb Hct MCV MCH MCHC RDW Plt Count MPV Neut % (Auto) Lymph % (Auto) [place] % (Auto) Eos % (Auto) Baso % (Auto) Nucleat RBC Rel Count Absolute Neuts (auto) Absolute Lymphs (auto) Absolute Monos (auto) Absolute Eos (auto) Absolute Basos (auto) Absolute Nucleated RBC Immature Gran % Immature Gran # VBG Lactic Acid 0.9 mmol/L mmol/L (0.7-2.1) Sodium Potassium Chloride Carbon Dioxide Anion Gap BUN Creatinine Estimated GFR Glucose Calcium Urine Color Urine Appearance Urine pH Ur Specific [place] Urine Protein Urine Ketones Urine Blood Urine Nitrate Urine Bilirubin Urine Urobilinogen Ur Leukocyte Esterase Urine RBC Urine WBC Ur Epithelial Cells Urine Mucus Ur Culture Indicated? Urine Glucose Medications Given: Discontinued Medications Sodium Chloride (Ns) 1,000 mls @ 0 mls/hr IV ONCE ONE PRN Reason: Wide Open Stop: 01/11/17 17:25 Last Admin: 01/11/17 17:27 Dose: 1,000 mls Departure - Departure Disposition: Home, Routine, Self-Care Clinical Impression: Viral syndrome, Fever Condition: Good Instructions: Fever in Adults (ED) Additional Instructions: 1. Please return to the emergency department for worsening symptoms, cough, rash or other concerns. 2. Please follow up with your primary care provider as scheduled. 3. Tylenol as needed for fever. Referrals: Ra Beltran MD [Primary Care Provider] - As per Instructions
[2017-01-11 16:21] LABS: % IMMATURE GRANULYOCYTES 0.7 % (0.0-1.1); ADD DIFF? NO; ADD MORPH? NO; ADD SCAN? NO; ATYPICAL LYMPHOCYTE FLAG 0 (0-99); FRAGMENT RBC FLAG 0 (0-99); HEMATOCRIT 37.3 % (40.0-51.0); HEMOGLOBIN 12.5 g/dL (13.7-17.5); LEFT SHIFT FLG 10 (0-99); LIPEMIA HEMOLYSIS FLAG 80 (0-99); MEAN CELL HEMOGLOBIN 29.7 pg (27.9-34.1); MEAN CELL HEMOGLOBIN CONCENTR. 33.5 g/dL (32.4-36.7); MEAN CELL VOLUME 88.6 fL (81.5-99.8); MEAN PLATELET VOLUME 9.6 fL (8.7-11.7); PLATELET CLUMPS FLAG 10 (0-99); PLATELET COUNT 318 10^3/uL (150-400); RED BLOOD CELL COUNT 4.21 10^6/uL (4.40-6.38); RED CELL DISTRIBUTION WIDTH 14.8 % (11.5-15.2)
[2017-01-11 16:32] LABS: ANION GAP 11 mEq/L (8-16); CALCIUM 9.4 mg/dL (8.5-10.4); CARBON DIOXIDE 19 mEq/l (22-31); CHLORIDE 103 mEq/L (97-110); CREATININE 2.3 mg/dL (0.7-1.3); GLOMERULAR FILTRATION RATE 27; GLUCOSE 121 mg/dL (70-100); POTASSIUM 4.7 mEq/L (3.5-5.2); SODIUM 133 mEq/L (134-144)
[2017-01-11] MEDS ORDERED: NS 1,000 ML IV ONE (17:24)
[2017-01-11 18:00] LABS: COLOR YELLOW; LEUKOCYTE ESTERASE,URINE NEGATIVE (NEGATIVE); NITRITE,URINE NEGATIVE (NEGATIVE)
[2017-01-11 18:04] LABS: MUCUS TRACE /lpf (NONE-1+)
[2017-01-11 18:46] VITALS: BP 120/68; PULSE 69; RESP 18; O2SAT 93
== END 2017-01-11 18:44 | disposition home or self-care (01) ==
DX: B34.9 Viral infection, unspecified (principal); I12.0 Hypertensive chronic kidney disease with stage 5 chronic kidney disease or end stage renal disease; N18.6 End stage renal disease; Z87.891 Personal history of nicotine dependence; Z79.82 Long term (current) use of aspirin

== ENCOUNTER 2017-06-09 16:57 | Emergency (ER) | payer OTHER, MEDICARE ==
--- NOTE | 2017-06-09 17:04 | EDPHY ---
H & P Time Seen by Provider: 06/09/17 17:00 HPI/ROS: CHIEF COMPLAINT: Fever, cough HISTORY OF PRESENT ILLNESS: The patient presents to the ED on a 2-3 day history of fever and cough. The patient has a history of chronic renal insufficiency. The patient is on chronic oral vancomycin for Clostridium difficile. The patient denies any complaints of headache, neck pain, abdominal pain, vomiting or diarrhea. He does complain of generalized weakness secondary to his fever and cough. He has had a decreased appetite and decreased oral intake. The patient denies history of dysuria. The patient reports that his cough is resulting in symptoms of moderate dyspnea. By report, the patient's grandson has also been sick with an upper respiratory illness for the past 3 days. REVIEW OF SYSTEMS: A comprehensive 10 point review of systems is otherwise negative aside from elements mentioned in the history of present illness. Source: Patient Exam Limitations: No limitations - Medical/Surgical History Hx Asthma: No Hx Chronic Respiratory Disease: No Hx Diabetes: No Hx Cardiac Disease: Yes Hx Renal Disease: Yes Hx Cirrhosis: No Hx Alcoholism: No Hx HIV/AIDS: No Hx Splenectomy or Spleen Trauma: No Other PMH: MEDICAL- ESRD, HTN, HLD, KIDNEY STONES, UTI. SURGICAL- LITHOTRIPSY, CATARACT/renal failure - Social History Smoking Status: Former smoker - Physical Exam Exam: General Appearance: Alert, no distress Eyes: Pupils equal and round no pallor or injection ENT, Mouth: Mucous membranes moist Respiratory: There are no retractions, lungs are clear to auscultation Cardiovascular: Regular rate and rhythm Gastrointestinal: Abdomen is soft and nontender, no masses, bowel sounds normal Neurological: A&O, normal motor function, normal sensory exam, normal cranial nerves Skin: Warm and dry, no rashes Musculoskeletal: Neck is supple nontender Extremities: symmetrical, full range of motion Constitutional: Initial Vital Signs Temperature (C) 36.8 C 06/09/17 17:07 Heart Rate 67 06/09/17 17:07 Respiratory Rate 18 06/09/17 17:07 Blood Pressure 151/68 H 06/09/17 17:07 O2 Sat (%) 92 06/09/17 17:07 O2 Delivery Mode Room Air Allergies/Adverse Reactions: furosemide [From Lasix] Allergy (Intermediate, Verified 06/09/17 17:04) Rash BRIAN Inhibitors Allergy (Verified 08/27/17 17:04) Home Medications: Medication Instructions Recorded Aspirin [Ecotrin] 81 mg PO MWF@2100 04/05/12 Fenofibrate [Tricor 145 mg (*)] 145 mg PO DAILY 04/05/12 Pantoprazole Sodium [Protonix 40mg 40 mg PO DAILY 04/05/12 (*)] amLODIPine BESYLATE [Norvasc 5 mg 5 mg PO BID@08,12 04/05/12 (*)] Cholecalciferol Vit D3 [Vitamin D3 2,000 units PO DAILY 12/28/13 (*)] Ezetimibe [Zetia 10 MG (*)] 10 mg PO DAILY 12/28/13 Bimatoprost 0.01% [Lumigan 0.01% 1 drops EACHEYE HS 05/04/16 (*)] Brimonidine/Timolol [Combigan (*)] 1 drop EACHEYE BID 05/04/16 Tamsulosin HCl [Flomax 0.4 MG (*)] 0.4 mg PO DAILY@18 PRN 05/04/16 hydrALAZINE [Apresoline] 2.5 tab PO TID 05/04/16 Acetaminophen [Tylenol 325mg (*)] 650 mg PO Q6 #0 tab 05/10/16 Temazepam [Restoril 15 MG (*)] 15 mg PO HS PRN #0 cap 05/10/16 B,C/Ferrous Fum/FA/D3/Zinc Ox 2 each PO DAILY 12/05/16 [Prorenal Multivitamin Tablet] FLUOROURACIL 1 applic TP BID 12/05/16 Psyllium Husk (with Sugar) 12 g PO DAILY PRN 12/05/16 [Metamucil Packet] Betamethasone Dipropionate 06/09/17 Vancomycin 06/09/17 Medical Decision Making - Diagnostics Imaging Results: Imaging Impressions Chest X-Ray 06/09/17 17:19 Impression: 1. Stable borderline cardiomegaly. 2. Stable fibrotic changes at the lung bases. ED Course/Re-evaluation: The patient presents to the ED for a 3 day history of fever, cough and congestion. The patient's chest x-ray demonstrates no evidence of an obvious pneumonia. The patient's vital signs are stable. The patient had IV fluids in the emergency department. The patient's venous lactate is reassuring. The patient was kept on a advertising account executive and observed in the emergency department for several hours. He was instructed in the use of albuterol for management of bronchitis. The patient was re-evaluated at 8:00 p.m.. A respiratory viral pathogen panel still pending. At this point time there is no obvious focal infiltrate on his chest x-ray or indication for antibiotics. The patient was offered admission to the hospital given his age and comorbidities. The patient however prefers to go home. The patient is comfortable returning for any worsening respiratory symptoms or other concerns. The patient is noted to have chronic renal failure with a creatinine of 2.7. Differential Diagnosis: Differential diagnosis considered includes asthma, bronchitis, pneumonia, metabolic abnormality - Data Points Laboratory Results: Laboratory Results 06/09/17 17:06/09/17 17:06/09/17 06/09/17 06/09/17 17: 17: 17:25 WBC 10.99 10^3/uL H 10^3/uL (3.80-9.50) RBC 4.62 10^6/uL 10^6/uL (4.40-6.38) Hgb 13.9 g/dL g/dL (13.7-17.5) Hct 42.4 % % (40.0-51.0) MCV 91.8 fL fL (81.5-99.8) MCH 30.1 pg pg (27.9-34.1) MCHC 32.8 g/dL g/dL (32.4-36.7) RDW 13.8 % % (11.5-15.2) Plt Count 302 10^3/uL 10^3/uL (150-400) MPV 9.6 fL fL (8.7-11.7) Neut % (Auto) 79.5 % H % (39.3-74.2) Lymph % (Auto) 7.4 % L % (15.0-45.0) [place] % (Auto) 6.6 % % (4.5-13.0) Eos % (Auto) 4.7 % % (0.6-7.6) Baso % (Auto) 1.0 % % (0.3-1.7) Nucleat RBC Rel Count 0.0 % % (0.0-0.2) Absolute Neuts (auto) 8.73 10^3/uL H 10^3/uL (1.70-6.50) Absolute Lymphs (auto) 0.81 10^3/uL L 10^3/uL (1.00-3.00) Absolute Monos (auto) 0.73 10^3/uL 10^3/uL (0.30-0.80) Absolute Eos (auto) 0.52 10^3/uL H 10^3/uL (0.03-0.40) Absolute Basos (auto) 0.11 10^3/uL H 10^3/uL (0.02-0.10) Absolute Nucleated RBC 0.00 10^3/uL 10^3/uL (0-0.01) Immature Gran % 0.8 % % (0.0-1.1) Immature Gran # 0.09 10^3/uL 10^3/uL (0.00-0.10) VBG Lactic Acid 0.9 mmol/L mmol/L (0.7-2.1) Sodium 137 mEq/L mEq/L (134-144) Potassium 4.9 mEq/L mEq/L (3.5-5.2) Chloride 104 mEq/L mEq/L (97-110) Carbon Dioxide 22 mEq/l mEq/l (22-31) Anion Gap 11 mEq/L mEq/L (8-16) BUN 34 mg/dL H mg/dL (7-23) Creatinine 2.7 mg/dL H mg/dL (0.7-1.3) Estimated GFR 22 Glucose 95 mg/dL mg/dL (70-100) Calcium 10.1 mg/dL mg/dL (8.5-10.4) Departure - Departure Disposition: Home, Routine, Self-Care Clinical Impression: Acute bronchitis, Chronic kidney disease Condition: Good Instructions: Acute Bronchitis (ED) Additional Instructions: 1. Please return to the emergency department for worsening respiratory symptoms. 2. Tylenol as needed for fever. 3. Please use albuterol inhaler every 4 hours as needed for cough. 4. Please follow up with your primary care provider for a recheck this week. Referrals: Ra Beltran MD [Primary Care Provider] - As per Instructions
[2017-06-09 17:41] LABS: % IMMATURE GRANULYOCYTES 0.8 % (0.0-1.1); ABSOLUTE IMMATURE GRANULOCYTES 0.09 10^3/uL (0.00-0.10); ADD DIFF? NO; ADD MORPH? NO; ADD SCAN? NO; ATYPICAL LYMPHOCYTE FLAG 0 (0-99); FRAGMENT RBC FLAG 0 (0-99); HEMATOCRIT 42.4 % (40.0-51.0); HEMOGLOBIN 13.9 g/dL (13.7-17.5); LEFT SHIFT FLG 0 (0-99); LIPEMIA HEMOLYSIS FLAG 80 (0-99); MEAN CELL HEMOGLOBIN 30.1 pg (27.9-34.1); MEAN CELL HEMOGLOBIN CONCENTR. 32.8 g/dL (32.4-36.7); MEAN CELL VOLUME 91.8 fL (81.5-99.8); MEAN PLATELET VOLUME 9.6 fL (8.7-11.7); PLATELET CLUMPS FLAG 0 (0-99); PLATELET COUNT 302 10^3/uL (150-400); RED BLOOD CELL COUNT 4.62 10^6/uL (4.40-6.38); RED CELL DISTRIBUTION WIDTH 13.8 % (11.5-15.2)
[2017-06-09 17:49] LABS: ANION GAP 11 mEq/L (8-16); CALCIUM 10.1 mg/dL (8.5-10.4); CARBON DIOXIDE 22 mEq/l (22-31); CHLORIDE 104 mEq/L (97-110); CREATININE 2.7 mg/dL (0.7-1.3); GLOMERULAR FILTRATION RATE 22; GLUCOSE 95 mg/dL (70-100); POTASSIUM 4.9 mEq/L (3.5-5.2); SODIUM 137 mEq/L (134-144)
[2017-06-09 18:16] VITALS: PULSE 78; TEMP 99.1
[2017-06-09] MEDS ORDERED: ALBUTEROL INH PREPACK MDI TAKEHOME ONE (19:58)
[2017-06-09 20:25] VITALS: BP 132/78; RESP 18; O2SAT 98
== END 2017-06-09 20:24 | disposition home or self-care (01) ==

== ENCOUNTER 2017-10-14 13:03 | Inpatient (IN) | payer OTHER, MEDICARE ==
[2017-10-14] MEDS ORDERED: NS 2,100 ML IV ONE (14:01)
--- NOTE | 2017-10-14 14:02 | EDPHY ---
HPI/HX/ROS/PE/MDM Narrative: CHIEF COMPLAINT: Fever HPI: This patient is an 87 year old male arriving with his family for evaluation of fever and cough. His grandson currently has pneumonia, and he has developed similar symptoms in the last couple days. His daughter at bedside states hs has had a fever and cough. They contacted his primary care provider, Dr. Beltran , and discussed antibiotic management vs. presentation to the emergency department. The patient has history of c-difficile, so his PCP is cautious regarding antibiotic administration. Until this morning, his fever had been well controlled with Tylenol. This morning, his fever worsened and he noted increased weakness; he was unable to walk to the restroom unassisted. He began taking Azithromycin this morning and has done home albuterol nebulizer treatments. He presents due to weakness and persistent fever. He denies vomiting , diarrhea, urinary complaints, chest pain, or other associated symptoms. He did receive his flu shot this year. REVIEW OF SYSTEMS: Aside from elements discussed in the HPI, a comprehensive 10-point review of systems was reviewed and is negative. PMH: 1. Hypertension 2. End stage renal disease 3. Kidney stones (s/p lithotripsy) 4. Hyperlipidemia 5. History of UTIs SOCIAL HISTORY: Daughter and freight representative at bedside. Lives in [place]. Retired. PHYSICAL EXAM: General:Patient is alert, in no acute distress. ENT:Eyes are normal to inspection. ENT inspection normal. Neck: Normal inspection. Full range of motion. Respiratory: Bilateral scattered coarse rhonchi Cardiovascular: Regular rate and rhythm. Strong peripheral pulses. Normal cap refill. Abdomen:The abdomen is nontender to palpation. There are no peritoneal signs. There are normal bowel sounds. Back: Normal to inspection. No tenderness to palpation. Skin: Normal color. No rash. Warm and dry. Extremities: Normal appearance. Full range of motion. Neuro: Oriented x3. Normal motor function. Normal sensory function. MDM: This patient presents with cough and fever in the setting of multiple co- morbidities. Per family, the patient is too weak to do any ADLs, and he therefore requires admission for further workup and treatment. Flu swab is negative, lactate is normal and CXR does not reveal PNA. I see no signs of septic shock or UTI. General Time Seen by Provider: 10/14/17 13:36 Initial Vital Signs: Initial Vital Signs Temperature (C) 36.9 C 10/14/17 13:09 Heart Rate 68 10/14/17 13:09 Respiratory Rate 20 10/14/17 13:09 Blood Pressure 137/61 H 10/14/17 13:09 O2 Sat (%) 92 10/14/17 13:09 O2 Delivery Mode Nasal Cannula O2 (L/minute) 2 Allergies/Adverse Reactions: BRIAN Inhibitors Allergy (Severe, Verified 10/14/17 14:38) Swelling/neck,face,throat furosemide [From Lasix] Allergy (Intermediate, Verified 10/14/17 13:07) Rash Home Medications: Medication Instructions Recorded Aspirin [Ecotrin] 81 mg PO MWF@2100 04/05/12 Fenofibrate [Tricor 145 mg (*)] 145 mg PO DAILY 04/05/12 Pantoprazole Sodium [Protonix 40mg 40 mg PO BID 04/05/12 (*)] amLODIPine BESYLATE [Norvasc 5 mg 5 mg PO BID@08,12 04/05/12 (*)] Ezetimibe [Zetia 10 MG (*)] 10 mg PO DAILY 12/28/13 Bimatoprost 0.01% [Lumigan 0.01% 1 drops EACHEYE HS 05/04/16 (*)] Tamsulosin HCl [Flomax 0.4 MG (*)] 0.8 mg PO DAILY@18 05/04/16 hydrALAZINE [Apresoline] 62.5 mg PO TID 05/04/16 Temazepam [Restoril 15 MG (*)] 15 mg PO HS PRN #0 cap 05/10/16 B,C/Ferrous Fum/FA/D3/Zinc Ox 2 each PO DAILY 12/05/16 [Prorenal Multivitamin Tablet] Psyllium Husk (with Sugar) 1 packet PO DAILY 12/05/16 [Metamucil Packet] Betamethasone Clari 0.1% 1 elizabeth TP TID 06/09/17 [Betamethasone Clari 0.1% (*)] Vancomycin [Vancomycin (*)] 250 mg PO DAILY 06/09/17 Acetaminophen [Tylenol 325mg (*)] 650 mg PO Q6 PRN 10/14/17 Albuterol [Proventil Neb] 3 ml IH Q6 PRN 10/14/17 Azithromycin [Zithromax] 250 mg PO DAILY 10/14/17 Brimonidine/Timolol [Combigan (*)] 1 drops EACHEYE BID 10/14/17 Cholecalciferol Vit D3 [Vitamin D3 2,000 units PO DAILY 10/14/17 2000 units tab (OTC)] Herbals/Supplements -Info Only 1 ea PO DAILY 10/14/17 Ranitidine HCl [Zantac] 150 mg PO HS 10/14/17 Departure - Departure Disposition: [facility] Acute Report Scribed for: Ravin Perez Report Scribed by: Jessica Tavera Date of Report: 10/14/17 Time of Report: 14:02 Physician Review and Approval Statement: Portions of this note were transcribed by an ED scribe. I personally performed the history, physical exam, and medical decision making; and confirm the accuracy of the information in the transcribed note.
[2017-10-14 14:09] LABS: PLATELET COUNT 297 10^3/uL (150-400)
[2017-10-14] MEDS ORDERED: ONDANSETRON 4 MG/2 ML VIAL IVP PRN (15:53)
[2017-10-14] MEDS ORDERED: oxyCODONE IR 5 MG TAB PO PRN (15:53)
[2017-10-14] MEDS ORDERED: ONDANSETRON DISINTEGRATING 4 MG TAB PO PRN (15:53)
[2017-10-14] MEDS ORDERED: ALBUTEROL 3 ML DEYVIAL IH PRN (15:53)
[2017-10-14] MEDS: BETAMETHASONE VAL 0.1% 15 GM CREAM TP SCH ×2 (16:00→22:24)
[2017-10-14] MEDS ORDERED: 1/2 NS 1,000 ML IV SCH (16:00)
--- NOTE | 2017-10-14 16:29 | GHP ---
[f rep st] HISTORY AND PHYSICAL DATE OF ADMISSION: 10/14/2017 CHIEF COMPLAINT: Cough, fever. HISTORY OF PRESENT ILLNESS: 87-year-old man who became ill about 2 days ago. This is associated with worsening cough, some wheezing, no shortness of breath, fever to 102. He has gotten progressively weaker. He has a DICTATING MACHINE TYPIST who is with him much of the time who says that he normally walks with a cane or walker. He has been so weak that he has had to be in a wheelchair. He is normally quite active and exercises, but he has not been doing this. He spoke with Dr. Beltran on the phone, who had cautiously prescribed him some azithromycin ( he has a history of C difficile) he has taken 1 of those and thinks that he may be slightly better, though he is not really sure. His grandson has been sick with a pneumonia recently. PAST MEDICAL/SURGICAL HISTORY: 1. Chronic kidney disease. 2. History of C difficile. 3. Constipation. 4. Hypertension. 5. BPH. 6. Pulmonary hypertension. 7. Actinic keratosis. 8. Right CELSO. 9. Cholecystectomy. 10. Cataract surgery. MEDICATIONS: Please see medication reconciliation. ALLERGIES: BRIAN inhibitors and furosemide. FAMILY HISTORY: Reviewed and noncontributory. SOCIAL HISTORY: He has a DICTATING MACHINE TYPIST who is present with him during my interview. He lives with his daughter and his grandson. REVIEW OF SYSTEMS: A 10-point review of systems is conducted and is negative except per HPI. PHYSICAL EXAM: VITAL SIGNS: Blood pressure 163/71, heart rate 82, respiration rate 16, saturating 95% on 2 L. Temperature is 36.9. GENERAL: Mr. Vasquez is a very pleasant man who looks quite uncomfortable, lying in bed, in mild distress. HEENT: Shows him to be wearing a mask. CARDIOVASCULAR: Regular rate and rhythm. No murmurs, rubs, or gallops. PULMONARY: Diffuse rhonchi, some mild wheezes. He is in no respiratory distress. There are no bronchial breath sounds. No crackles. ABDOMINAL: Soft, nontender, nondistended. SKIN: No rash or cellulitis throughout. GENITOURINARY: No [place]. NEUROLOGIC: Shows him to be alert and oriented x3. He has a nonfocal neurologic exam. PSYCHIATRIC: Normal mood and affect. RHEUMATOLOGIC: No joint effusions. No erythema over any joints. LABS: White count is 11.5, lactate is 1.3. Creatinine 2.8, bicarb 21. Urinalysis shows 2+ protein. He is negative for influenza. DATA: 1. I discussed with Dr. Perez and will admit to med/surg. 2. I personally viewed and interpreted his chest x-ray. There is no final read , though I do not see any focal infiltrates. I do see some mild peribronchial thickening. IMPRESSION AND PLAN: This is an 87-year-old man with suspected viral illness. 1. Fever/cough: No infiltrate on x-ray. Suspect that this is a viral bronchitis. Full viral panel is pending at this time. No evidence of joint effusions. No evidence of cellulitis. No evidence of urinary tract infection. No new murmurs on exam. Will hold on antibiotics now, given his history of Clostridium difficile; I think the risk of treating this is higher than the risk of not. Will follow him closely in the hospital. Will recheck another chest x-ray tomorrow to see if pneumonia appears after some hydration. Will place him on continuous pulse oximetry. 2. Weakness: Due to the above. Have PT, OT work with him. I do not think this is a separate process. 3. Chronic kidney disease: Avoid nephrotoxins, renally dose medications. He is at his baseline. 4. History of Clostridium difficile: Will only use antibiotics if necessary. He is on a prophylactic dose of vancomycin oral, will continue this. 5. Benign prostatic hyperplasia: Flomax. 6. Code status: He is a do not resuscitate. He confirms this with me. 7. Venous thromboembolism risk is high; I will give him subcu heparin. ADDENDUM: Given his ongoing increased WOB and moderate procalcitonin, I will start levaquin to cover a bacterial bronchitis acknowledging the risk of c. dif which should be minimized by prophylactic vancomycin PO. /[id number]/MODL MTDD
[2017-10-14] MEDS: IPRATROPIUM/ALBUTEROL 3 ML DEYVIAL IH SCH ×2 (17:02→20:25)
[2017-10-14] MEDS: hydrALAZINE 25 MG TAB PO SCH ×2 (17:32→22:52)
[2017-10-14] MEDS: TAMSULOSIN HCL 0.4 MG CAP PO SCH (17:34)
[2017-10-14] MEDS: ACETAMINOPHEN 325 MG TAB PO PRN ×2 (17:35→21:57)
[2017-10-14] MEDS: predniSONE 20 MG TAB PO SCH (18:43)
[2017-10-14] MEDS: FAMOTIDINE 20 MG TAB PO SCH (21:59)
[2017-10-14] MEDS: ASPIRIN EC 81 MG TAB PO SCH (21:59)
[2017-10-14] MEDS: PANTOPRAZOLE SODIUM 40 MG TAB PO SCH (21:59)
[2017-10-14] MEDS: HEPARIN 5,000 UNIT/0.5 ML SYR SC SCH (22:00)
[2017-10-14] MEDS: BRIMONIDINE/TIMOLOL 5 ML OPHT.BTL EACHEYE SCH (22:24)
[2017-10-14] MEDS: BIMATOPROST 0.01% 2.5 ML OPHT.BTL EACHEYE SCH (22:24)
[2017-10-15 05:11] LABS: PLATELET COUNT 238 10^3/uL (150-400)
[2017-10-15] MEDS: HEPARIN 5,000 UNIT/0.5 ML SYR SC SCH ×3 (05:36→21:29)
[2017-10-15] MEDS: IPRATROPIUM/ALBUTEROL 3 ML DEYVIAL IH SCH ×4 (05:40→21:18)
[2017-10-15] MEDS ORDERED: amLODIPine BESYLATE 5 MG TAB PO SCH (08:00)
[2017-10-15] MEDS: VANCOMYCIN 125 MG/2.5 ML UDL PO SCH (08:18)
[2017-10-15] MEDS: PSYLLIUM METAMUCIL 1 PKT PO SCH (08:18)
[2017-10-15] MEDS: PANTOPRAZOLE SODIUM 40 MG TAB PO SCH ×2 (08:18→21:28)
[2017-10-15] MEDS: EZETIMIBE 10 MG TAB PO SCH (08:18)
[2017-10-15] MEDS: predniSONE 20 MG TAB PO SCH (08:18)
[2017-10-15] MEDS: BRIMONIDINE/TIMOLOL 5 ML OPHT.BTL EACHEYE SCH ×2 (08:19→21:31)
[2017-10-15] MEDS: BETAMETHASONE VAL 0.1% 15 GM CREAM TP SCH ×3 (08:20→21:32)
[2017-10-15] MEDS ORDERED: FENOFIBRATE 145 MG TAB PO SCH (09:00)
[2017-10-15] MEDS: [UNRECOGNIZED DRUG - OTHER] PO SCH (10:15)
--- NOTE | 2017-10-15 12:04 | ASMTCASEMG ---
Living Arrangements What is your living Answers: Alone arrangement? Who do you live with? Type Of Residence What kind of residence do Answers: House you live in? Discharge Plan Comments Coordination Status Comments Notes: Patient is an 87yo male who was admitted for fever/cough suspected to be a viral bronchitis. Patient is also experiencing weakness, chronic kidney disease, benign prostatic hyperplasia and hx of c-diff. PT and OT have been ordered. Awaiting therapies recommendations to determine d/c plan. CM will follow. Date Signed: 10/15/2017 12:04 PM Electronically Signed By:Dhara Silva LCSW
--- NOTE | 2017-10-15 12:20 | HOSPPROG ---
Hospitalist Progress Note Assessment/Plan: Patient is an 87 y/o man who was feeling ill a few days ago. He has had a cough and fever. Today is my first encounter w the patient, chart reviewed. * fever and cough -respiratory viral panel is negative -reviewed his chest x-ray it appears that he has bronchitis *Viral bronchitis -on Levaquin *Weakness -physical therapy and occupational therapy working with him * chronic kidney disease -reviewed his previous labs he is close to his baseline * history of Clostridium difficile -he is on his home dose of oral vancomycin * BPH -on Flomax * DVT prophylaxis. On heparin three times daily * plan. Mr. Sosa is very short of breath and dyspneic with talking. He will need another midnight stay for close monitoring. And he still is requiring oxygen. If improved will discharge in the morning. He will require inpatient stay. Subjective: Mandeep says he started to feel better but is still very short of breath with breathing and with walking Objective: Vital Signs Temp Pulse Resp BP Pulse Ox 36.5 C 54 L 16 114/65 94 10/15/17 11:50 10/15/17 11:50 10/15/17 11:50 10/15/17 11:50 10/15/17 11:50 Laboratory Results 10/15/17 04:40 10/15/17 04:40 10/14/17 10/15/17 10/16/17 05:59 05:59 05:59 Intake Total 2826 Output Total 650 Balance 2176 - Physical Exam Constitutional: no apparent distress, appears nourished Eyes: PERRL Ears, Nose, Mouth, Throat: hearing normal Cardiovascular: regular rate and rhythym Respiratory: No no respiratory distress (Increased respiratory rate with talking ) Gastrointestinal: normoactive bowel sounds Musculoskeletal: generalized weakness Neurologic: AAOx3 Psychiatric: interacting appropriately ICD10 Worksheet Patient Problems: Problems Problem Status Onset Hyperplasia of prostate Active Renal failure syndrome Active Retention of urine Active Urinary tract infectious disease Active chronic renal Active C. difficile diarrhea Acute ~12/07/16 Chronic kidney disease Acute Diarrhea Acute Fall Acute Fracture of femoral neck, right, closed Acute Weakness Acute
[2017-10-15] MEDS: TAMSULOSIN HCL 0.4 MG CAP PO SCH (18:11)
--- NOTE | 2017-10-15 18:21 | PDMN ---
Medical Necessity Medical necessity: change to IP; los>2mn for ongoing eval and rx for cough, fever, viral bronchitis, weakness, with continued need for supplemental O2, PT/ OT and close monitoring; comorbid CKD, BPH, advanced age, and c diff on vanco; per order and progress note 10/15/17
[2017-10-15] MEDS: FAMOTIDINE 20 MG TAB PO SCH (21:29)
[2017-10-15] MEDS: BIMATOPROST 0.01% 2.5 ML OPHT.BTL EACHEYE SCH (21:30)
[2017-10-16] MEDS: TEMAZEPAM 15 MG CAP PO PRN ×2 (01:41→20:31)
[2017-10-16] MEDS: IPRATROPIUM/ALBUTEROL 3 ML DEYVIAL IH SCH ×4 (03:45→21:15)
[2017-10-16] MEDS: GUAIFENESIN/DM 10 ML UDCUP PO PRN ×3 (04:03→20:30)
[2017-10-16] MEDS: HEPARIN 5,000 UNIT/0.5 ML SYR SC SCH ×3 (04:04→20:30)
[2017-10-16] MEDS: predniSONE 20 MG TAB PO SCH (09:37)
[2017-10-16] MEDS: PANTOPRAZOLE SODIUM 40 MG TAB PO SCH ×2 (09:37→20:31)
[2017-10-16] MEDS: EZETIMIBE 10 MG TAB PO SCH (09:37)
[2017-10-16] MEDS: VANCOMYCIN 125 MG/2.5 ML UDL PO SCH (09:37)
[2017-10-16] MEDS: PSYLLIUM METAMUCIL 1 PKT PO SCH (09:44)
[2017-10-16] MEDS: BRIMONIDINE/TIMOLOL 5 ML OPHT.BTL EACHEYE SCH ×2 (09:44→13:32)
[2017-10-16] MEDS: BETAMETHASONE VAL 0.1% 15 GM CREAM TP SCH ×3 (09:46→20:37)
[2017-10-16] MEDS: [UNRECOGNIZED DRUG - OTHER] PO SCH (09:47)
[2017-10-16] MEDS ORDERED: NS 1,000 ML IV SCH (13:30)
--- NOTE | 2017-10-16 14:24 | HOSPPROG ---
Hospitalist Progress Note Assessment/Plan: Patient is an 87 y/o man who was feeling ill a few days ago. He has had a cough and fever. * fever and cough -respiratory viral panel is negative -reviewed his chest x-ray it appears that he has bronchitis *Viral bronchitis -on Levaquin *acute hypoxemia -O2 needs up today, will get repeat chest xray in a.m. -check a bnp *Weakness -physical therapy and occupational therapy working with him * chronic kidney disease -reviewed his previous labs he is close to his baseline * history of Clostridium difficile -he is on his home dose of oral vancomycin * BPH -on Flomax * DVT prophylaxis. On heparin three times daily * plan. Daughter is concerned her dad is dehydrated, requesting for him to be on fluids, will check bnp, start fluids if needed, check chest xray in a.m. Subjective: Mandeep is feeling more short of breath today. Objective: Vital Signs Temp Pulse Resp BP Pulse Ox 37.0 C 66 18 131/76 H 95 10/16/17 12:05 10/16/17 12:05 10/16/17 12:05 10/16/17 12:05 10/16/17 13:56 10/15/17 10/16/17 10/17/17 05:59 05:59 05:59 Intake Total 150 Output Total 100 640 Balance 50 -640 - Physical Exam Constitutional: chronically ill appearing Ears, Nose, Mouth, Throat: hard of hearing Cardiovascular: regular rate and rhythym Respiratory: rhonchi (bases), other (increase resp rate with talking, short of breath) Gastrointestinal: soft, non-tender abdomen Skin: warm, other (flushed) Neurologic: AAOx3 Psychiatric: interacting appropriately ICD10 Worksheet Patient Problems: Problems Problem Status Onset Hyperplasia of prostate Active Renal failure syndrome Active Retention of urine Active Urinary tract infectious disease Active chronic renal Active C. difficile diarrhea Acute ~12/07/16 Chronic kidney disease Acute Diarrhea Acute Fall Acute Fracture of femoral neck, right, closed Acute Weakness Acute
[2017-10-16] MEDS: TAMSULOSIN HCL 0.4 MG CAP PO SCH (18:32)
[2017-10-16] MEDS: ASPIRIN EC 81 MG TAB PO SCH (20:31)
[2017-10-16] MEDS: FAMOTIDINE 20 MG TAB PO SCH (20:31)
[2017-10-16] MEDS: BIMATOPROST 0.01% 2.5 ML OPHT.BTL EACHEYE SCH (20:36)
[2017-10-17] MEDS: GUAIFENESIN/DM 10 ML UDCUP PO PRN ×3 (01:04→22:20)
[2017-10-17] MEDS: IPRATROPIUM/ALBUTEROL 3 ML DEYVIAL IH SCH ×4 (05:07→20:18)
[2017-10-17 05:32] LABS: PLATELET COUNT 267 10^3/uL (150-400)
[2017-10-17] MEDS: HEPARIN 5,000 UNIT/0.5 ML SYR SC SCH ×3 (06:01→22:15)
[2017-10-17] MEDS: EZETIMIBE 10 MG TAB PO SCH (08:20)
[2017-10-17] MEDS: [UNRECOGNIZED DRUG - OTHER] PO SCH (08:21)
[2017-10-17] MEDS: BETAMETHASONE VAL 0.1% 15 GM CREAM TP SCH ×3 (08:21→22:21)
[2017-10-17] MEDS: VANCOMYCIN 125 MG/2.5 ML UDL PO SCH (08:21)
[2017-10-17] MEDS: predniSONE 20 MG TAB PO SCH (08:21)
[2017-10-17] MEDS: PANTOPRAZOLE SODIUM 40 MG TAB PO SCH ×2 (08:21→22:11)
[2017-10-17] MEDS: PSYLLIUM METAMUCIL 1 PKT PO SCH (08:21)
[2017-10-17] MEDS: BRIMONIDINE/TIMOLOL 5 ML OPHT.BTL EACHEYE SCH ×2 (08:22→12:56)
[2017-10-17] MEDS ORDERED: RANITIDINE HCL 150 MG/10 ML UDCUP PO SCH (12:15)
[2017-10-17] MEDS: amLODIPine BESYLATE 5 MG TAB PO SCH ×2 (12:56→22:11)
--- NOTE | 2017-10-17 13:29 | HOSPPROG ---
Hospitalist Progress Note Assessment/Plan: #Acute hypoxic resp failure: suspect due bronchitis with underlying tobacco history possible COPD exacerbation -not volume overloaded on exam, no edema on CXR. BNP is elevated, but not overloaded on exam. RHF? Echo pending. Low-suspicion for PE, but will check RLE doppler given bigger than left. Cannot CT with CKD -will not give Azithro for bronchitis with h/o C diff #h/o MR: echo 2015 with EF 65% #Possible COPD exacerbation: not diagnosed, but >40 pack-yr history. 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 Cont Zetia #HTN: resume hydral, Norvasc #BPH: #Compensated diastolic HF: not volume overloaded on exam #CKD: Cr at baseline #h/o C diff: vanc #DVT ppx: SQH #Disp: cont inpatient admission for hypoxia; requires nebs, pred Subjective: denies SOB. Dry cough Objective: Vital Signs Temp Pulse Resp BP Pulse Ox 36.8 C 76 17 156/75 H 92 10/17/17 11:51 10/17/17 11:51 10/17/17 11:51 10/17/17 12:56 10/17/17 11:51 Laboratory Results 10/17/17 05:06 10/17/17 05:06 10/16/17 10/17/17 10/18/17 05:59 05:59 05:59 Intake Total 150 850 Output Total 100 1870 225 Balance 50 -1020 -225 - Physical Exam Constitutional: no apparent distress Eyes: PERRL Ears, Nose, Mouth, Throat: moist mucous membranes, hearing normal Cardiovascular: regular rate and rhythym, edema (right leg >left) Respiratory: expiratory wheeze, other (poor air movement throughout) Gastrointestinal: normoactive bowel sounds, soft, non-tender abdomen Genitourinary: no bladder fullness, No reid in urethra Skin: warm Musculoskeletal: full muscle strength Neurologic: AAOx3, CN II-XII Intact Psychiatric: interacting appropriately ICD10 Worksheet Patient Problems: Problems Problem Status Onset Hyperplasia of prostate Active Renal failure syndrome Active Retention of urine Active Urinary tract infectious disease Active chronic renal Active C. difficile diarrhea Acute ~12/07/16 Chronic kidney disease Acute Diarrhea Acute Fall Acute Fracture of femoral neck, right, closed Acute Weakness Acute
--- NOTE | 2017-10-17 15:49 | ECHO ---
[email or web address] [address] [address] Main: [phone] Fax: Transthoracic Echocardiogram Name: FABIAN ARANDA MR#: [id number] Study Date: 10/17/2017 Study Time: 09:52 AM Date of : 1930 Age: 87 year(s) Height: 180.3 cm (71 in.) Weight: 70.31 kg (155 lb.) BSA: 1.89 m2 Gender: Male Examination: Echo Indication: Shortness of breath, Cough Image Quality: Contrast: Requested by: Ingrid Bearden BP: 122 mmHg/66 mmHg Heart Rate: Rhythm: Normal sinus rhythm Indication: Shortness of breath, Cough Procedure Staff Breaker Layer: Jeremias Murrieta Reading Physician: Roc Min Requesting Provider: Conclusions: Normal size left ventricle. Mild concentric LV hypertrophy. Normal global systolic LV function. EF is 66 %. No regional wall motion abnormality. Diastolic dysfunction is present. . Normal RV function. The mitral valve is normal in appearance and function. Mild mitral valve regurgitation is present. The aortic valve is normal in appearance and function. Mild tricuspid regurgitation is present. Measurements: Chambers Valvular Assessment AV/MV Valvular Assessment TV/PV Normal Normal Normal Name Value Range Name Value Range Name Value Range Ao Alejandrina (MM): 3.1 cm (2.2 cm-3.7 AV Vmax: 1.15 m/s (1 m/s-1.7 TR Vmax: 2.57 mm/s ( - ) cm) m/s) TR PGmax: 26 mmHg ( - ) IVSd (2D): 1.0 cm (0.6 cm-1.1 AV maxP mmHg ( - ) syst. PAP: 31 mmHg ( - ) cm) LVOT Vmax: 0.95 m/s (0.7 m/s-1.1 PV Vmax: 0.88 m/s (0.6 m/s-0.9 LVDd (2D): 5.3 cm (4.2 cm-5.9 m/s) m/s) cm) MV E Vmax: 0.67 m/s ( - ) PV PGmax: 3 mmHg ( - ) LVDs (2D): 3.4 cm (2.1 cm-4 MV A Vmax: 0.40 m/s ( - ) cm) MV E/A: 1.68 ( - ) LVPWd (2D): 1.2 cm (0.6 cm-1 cm) LVEF (2D): 66 (>=54 %) Continued Measurements: Chambers Valvular Assessment AV/MV Valvular Assessment TV/PV Patient: FABIAN ARANDA Study Date: 10/17/2017 Page 1 of 2 09:52 AM Name Value Name Value Name Value LADs Lon.5 cm MV E/E' Septal: 19.50 CVP (est.): 5 mmHg LA Area: 19.9 cm2 Findings: Left Ventricle: Normal size left ventricle. Mild concentric LV hypertrophy. Normal global systolic LV function. EF is 66 %. No regional wall motion abnormality. Diastolic dysfunction is present. . Right Ventricle: Normal size right ventricle. Normal RV function. Left Atrium: The left atrium is normal in size. Right Atrium: The right atrium is normal in size. Mitral Valve: The mitral valve is normal in appearance and function. Mild mitral valve regurgitation is present. Aortic Valve: The aortic valve is tri-leaflet. The aortic valve is normal in appearance and function. Tricuspid Valve: The tricuspid valve appears normal. Mild tricuspid regurgitation is present. The pulmonary artery pressure is normal. Pulmonic Valve: The pulmonic valve is normal in appearance and function. Aorta: The aorta is normal. Pericardium: No pericardial effusion. (No Signature Object) Patient: FABIAN ARANDA Study Date: 10/17/2017 Page 2 of 2 09:52 AM [id number]
[2017-10-17] MEDS: TAMSULOSIN HCL 0.4 MG CAP PO SCH (17:33)
[2017-10-17] MEDS: FAMOTIDINE 20 MG TAB PO SCH (22:11)
[2017-10-17] MEDS: ASPIRIN EC 81 MG TAB PO SCH (22:11)
[2017-10-17] MEDS: BIMATOPROST 0.01% 2.5 ML OPHT.BTL EACHEYE SCH (22:12)
[2017-10-17] MEDS: TEMAZEPAM 15 MG CAP PO PRN (22:20)
[2017-10-18] MEDS: IPRATROPIUM/ALBUTEROL 3 ML DEYVIAL IH SCH ×4 (05:15→21:54)
[2017-10-18] MEDS: HEPARIN 5,000 UNIT/0.5 ML SYR SC SCH ×3 (05:50→22:02)
[2017-10-18] MEDS ORDERED: OSELTAMIVIR PHOSPHATE 75 MG CAP PO SCH (08:00)
[2017-10-18] MEDS: amLODIPine BESYLATE 5 MG TAB PO SCH ×2 (08:15→21:59)
[2017-10-18] MEDS: EZETIMIBE 10 MG TAB PO SCH (08:16)
[2017-10-18] MEDS: PSYLLIUM METAMUCIL 1 PKT PO SCH (08:16)
[2017-10-18] MEDS: PANTOPRAZOLE SODIUM 40 MG TAB PO SCH ×2 (08:16→22:00)
[2017-10-18] MEDS: predniSONE 20 MG TAB PO SCH (08:16)
[2017-10-18] MEDS: VANCOMYCIN 125 MG/2.5 ML UDL PO SCH (08:16)
[2017-10-18] MEDS: [UNRECOGNIZED DRUG - OTHER] PO SCH ×2 (08:19→14:58)
[2017-10-18] MEDS: BETAMETHASONE VAL 0.1% 15 GM CREAM TP SCH ×3 (08:20→22:11)
[2017-10-18] MEDS: BRIMONIDINE/TIMOLOL 5 ML OPHT.BTL EACHEYE SCH ×2 (08:20→12:16)
--- NOTE | 2017-10-18 15:09 | HOSPPROG ---
Hospitalist Progress Note Assessment/Plan: #Acute hypoxic resp failure: suspect due bronchitis, Influenza and possible COPD exacerbation -not volume overloaded or CXR. Echo with diastolic HF, normal LV/RV function. Low-suspicion for PE and no signs of right heart strain. R leg doppler showed superficial thrombophlebitis of collateral vein given bigger than left. Cannot CT with CKD -will not give Azithro for bronchitis with h/o C diff #Influenza A: repeat PCR positive. Will treat with Tamiflu #Superficial thrombophlebitis: collateral of femoral vein. Favor surveillance rather than AC given ask and bleeding risk. I discussed with patient and he agrees. FU U/S outpatient #Deconditioning: PT to eval. Lives with daughter, caregiver during day #h/o MR: echo 2015 with EF 65% #Suspected COPD exacerbation: not diagnosed, but >40 pack-yr history. 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 Cont Zetia #HTN: resume hydral, Norvasc #BPH: #Compensated diastolic HF: not volume overloaded on exam #CKD: Cr at baseline #h/o C diff: vanc #DVT ppx: SQH #Disp: cont inpatient admission for hypoxia; requires nebs, pred. DC once PT clears. Plan discussed with daughter on phone Subjective: feels better. More energy. Denies CP or SOB Objective: Vital Signs Temp Pulse Resp BP Pulse Ox 36.7 C 56 L 18 130/64 H 93 10/18/17 13:00 10/18/17 14:53 10/18/17 13:00 10/18/17 14:56 10/18/17 13:00 Microbiology 10/17/17 15:41 Respiratory Panel (PCR) - Final Nasal, Sinus - Swab Influenza Virus Type A H3 Laboratory Results 10/18/17 05:22 10/18/17 05:22 10/17/17 10/18/17 10/19/17 05:59 05:59 05:59 Intake Total 850 500 Output Total 9106 797 692 Balance -3770 -345 -425 - Time Spent With Patient Time Spent with Patient: greater than 35 minutes Time Spent with Patient: Greater than 35 minutes spent on this patients care, greater than 50% of time spent counseling, educating, and coordinating care regarding the above mentioned plan. - Physical Exam Constitutional: no apparent distress Eyes: PERRL Ears, Nose, Mouth, Throat: moist mucous membranes, hearing normal Cardiovascular: regular rate and rhythym, edema (trace left ankle edema) Respiratory: expiratory wheeze, rhonchi, No inspiratory crackles Gastrointestinal: normoactive bowel sounds, soft, non-tender abdomen Skin: warm Musculoskeletal: generalized weakness Neurologic: AAOx3, CN II-XII Intact Psychiatric: interacting appropriately ICD10 Worksheet Patient Problems: Problems Problem Status Onset Hyperplasia of prostate Active Renal failure syndrome Active Retention of urine Active Urinary tract infectious disease Active chronic renal Active C. difficile diarrhea Acute ~12/07/16 Chronic kidney disease Acute Diarrhea Acute Fall Acute Fracture of femoral neck, right, closed Acute Weakness Acute
--- NOTE | 2017-10-18 15:56 | ASMTCMCOM ---
CM Note CM Note Notes: PT/OT have indicated pt is now at baseline. Met with pt to discuss DC needs. Pt lives with his dtr and has a TRAFFIC RATE ANALYST in the home from 8-2. Pt did not pereceive of any other needs except O2. C/M available if needs change. Date Signed: 10/18/2017 03:44 PM Electronically Signed By:Radha Mccoy LCSW
[2017-10-18] MEDS: TAMSULOSIN HCL 0.4 MG CAP PO SCH (18:12)
[2017-10-18] MEDS ORDERED: LR 1,000 ML IV SCH (19:00)
[2017-10-18] MEDS: FAMOTIDINE 20 MG TAB PO SCH (22:00)
[2017-10-18] MEDS: BIMATOPROST 0.01% 2.5 ML OPHT.BTL EACHEYE SCH (22:00)
[2017-10-18] MEDS: TEMAZEPAM 15 MG CAP PO PRN (22:02)
[2017-10-19] MEDS: HEPARIN 5,000 UNIT/0.5 ML SYR SC SCH (05:31)
[2017-10-19] MEDS: IPRATROPIUM/ALBUTEROL 3 ML DEYVIAL IH SCH ×2 (05:54→11:47)
[2017-10-19] MEDS: amLODIPine BESYLATE 5 MG TAB PO SCH (08:57)
[2017-10-19] MEDS: EZETIMIBE 10 MG TAB PO SCH (08:58)
[2017-10-19] MEDS: PANTOPRAZOLE SODIUM 40 MG TAB PO SCH (08:58)
[2017-10-19] MEDS: predniSONE 20 MG TAB PO SCH (08:59)
[2017-10-19] MEDS: PSYLLIUM METAMUCIL 1 PKT PO SCH (08:59)
[2017-10-19] MEDS: BETAMETHASONE VAL 0.1% 15 GM CREAM TP SCH (09:00)
[2017-10-19] MEDS ORDERED: D5W 1,000 ML IV SCH (09:00)
[2017-10-19] MEDS: BRIMONIDINE/TIMOLOL 5 ML OPHT.BTL EACHEYE SCH ×2 (09:00→11:05)
[2017-10-19] MEDS ORDERED: OSELTAMIVIR 6 MG/ML UDSYR PO SCH (09:00)
[2017-10-19] MEDS: VANCOMYCIN 125 MG/2.5 ML UDL PO SCH (09:07)
[2017-10-19] MEDS: [UNRECOGNIZED DRUG - OTHER] PO SCH (09:24)
--- NOTE | 2017-10-19 11:12 | PDHOMEO2F ---
Home Oxygen Face to Face Home Orders: I certify that a physician or a nurse practitioner or physician's engineer first assistant has had a [id number] encounter with this patient on the date of this order due to the diagnosis listed, which relates to the primary reason the patient requires home oxygen. Alternative treatments have been tried, or considered, and deemed ineffective. It is anticipated that supplemental oxygen will result in improvement with treatment. Home oxygen qualifying diagnosis: hypoxia Home oxygen secondary diagnosis: influenza SpO2 on room air (%): 87 Frequency of home oxygen needed: continuous Home oxygen liters per minute: 2 Home oxygen delivery device: nasal cannula Concentrator: Yes E-tanks for mobility and back up: Yes If ordering portable O2, is the patient mobile in the home?: Yes I certify that, based on these findings, the home oxygen is medically necessary for this patient for the following length of time. Length of time home oxygen needed: 1 month
[2017-10-19 11:28] VITALS: BP 145/78; PULSE 60; TEMP 97.5
[2017-10-19 12:30] VITALS: RESP 18; O2SAT 90
--- NOTE | 2017-10-19 13:52 | GDS ---
[f rep st] DISCHARGE SUMMARY DISCHARGE DIAGNOSES: 1. Acute hypoxic respiratory failure. 2. Influenza A. 3. Superficial thrombophlebitis. 4. Deconditioning. 5. History of mitral regurgitation. 6. Suspected chronic obstructive pulmonary disease exacerbation. 7. History of recurrent clostridium difficile infection. 8. Hyperlipidemia. 9. Hypertension. 10. Benign prostatic hyperplasia. 11. Compensated diastolic heart failure. 12. Chronic kidney disease. HISTORY: An 87-year-old male with history of recurrent C diff, CKD who presented with upper respirat ory infection starting 2 days prior to admission. This included a cough, wheezing, and fever to 102. He has become progressively weak. His home caregiver says he normally can walk with a cane or walk er, but had been so weak that he had to use a wheelchair. HOSPITAL COURSE BY PROBLEM: 1. Acute hypoxic respiratory failure: Suspect this is multifactorial with influenza A and likely un diagnosed COPD with significant smoking history. There was a concern for volume overload with elevat ed BNP, however, patient was not volume overloaded on exam. X-ray and echo showed only diastolic hea rt failure. The patient is now stable on room air. 2. Influenza A: Initial respiratory panel was negative, repeat was positive. He will be treated wi th Tamiflu renally dosed daily for a total of 5 days. 3. Superficial thrombophlebitis: There was initial concern for possible PE with acute hypoxic respi ratory failure and elevated BNP. Ultrasound showed thrombophlebitis of a collateral of the femoral v ein, but not involving the deep system. Favor surveillance rather than anticoagulation given age and bleeding risk. I discussed this with both the patient and daughter and they agree. He will have a followup ultrasound in the next 2-3 months. 4. Deconditioning: PT evaluated. The patient is safe with a cane or walker at home. He does have a caregiver during the day and then his daughter at night. 5. History of MR: Stable. 6. Suspect COPD exacerbation: He was not formally diagnosed, but had a greater than 40 pack-year hi story. His symptoms improved with nebs and prednisone. We will provide a nebulizer machine. He has completed 5 days of prednisone here. 7. History of recurrent C diff. Continue suppressive vancomycin. 8. Hyperlipidemia, intolerant to statins. Continue Zetia. 9. Hypertension. Resume home medications. 10. BPH. 11. Compensated diastolic heart failure: Did have elevated BNP; however, he was not volume overload on exam or x-ray. Thus, no diuresis indicated. DISPOSITION: The patient is stable for discharge home with his daughter and caregiver MEDICATIONS: Tamiflu, nebulizer with DuoNeb. FOLLOW UP: Primary care physician Dr. Beltran. PHYSICAL EXAM: VITAL SIGNS: Today, temperature 36.4, blood pressure 145/76, heart rate is 60, respi rations 16 and 90% on room air. GENERAL: Lying in bed, no acute distress. HEENT: PERRLA. EOMI. Or opharynx clear. CV: Regular rate and rhythm. No lower extremity edema. LUNGS: Less wheezing today, improved air movement, rhonchorous, no crackles. ABDOMEN: Soft, nontender, nondistended. Positive bowel sounds. : No Davidson. MUSCULOSKELETAL: 5/5 upper and lower extremity strength. NEUROLOGIC: 2 through 12 intact. PSYCHIATRIC: Alert and oriented x3. Time spent on discharge greater than 35 minutes coordinating discharge with the patient's daughter an meng explaining followup measures. /[id number]/MODL
--- NOTE | 2017-10-20 16:16 | ASDISCHSUM ---
Discharge Information Plan Status:Home with No Needs Medically Cleared to Leave:10/18/2017 Discharge Date:10/19/2017 02:15 PM CM D/C Disposition:Home, Routine, Self-Care ADT D/C Disposition:Home, Routine, Self-Care Projected Discharge Date:10/19/2017 12:00 AM Transportation at D/C:Family Discharge Delay Reason: Follow-Up Date:10/19/2017 12:00 AM Discharge Slot: Final Diagnosis:Hypoxic respiratory failure, Influenza A Placement Information Patient Contact Information Contact Name:DOMINGO Relationship:Daughter Address: City:[place] Alternate Phone: [facility] Code:[place] Email: Financial Information Financial Class: Primary Plan Desc:MEDICARE INPATIENT Primary Plan Number:[id number] Secondary Plan Desc:[employer]/MDR SUPPLEMENT Secondary Plan Number:[id number] Assessment Information [facility] Initial CM Assessment Living Arrangements What is your living Answers: Alone arrangement? Who do you live with? Type Of Residence What kind of residence do Answers: House you live in? Discharge Plan Comments Coordination Status Comments Notes: Patient is an 87yo male who was admitted for fever/cough suspected to be a viral bronchitis. Patient is also experiencing weakness, chronic kidney disease, benign prostatic hyperplasia and hx of c-diff. PT and OT have been ordered. Awaiting therapies recommendations to determine d/c plan. CM will follow. Date Signed: 10/15/2017 12:04 PM Electronically Signed By:Dhara Silva LCSW [facility] CM Progress Note CM Note CM Note Notes: PT/OT have indicated pt is now at baseline. Met with pt to discuss DC needs. Pt lives with his dtr and has a [employer] in the home from 8-2. Pt did not pereceive of any other needs except O2. C/M available if needs change. Date Signed: 10/18/2017 03:44 PM Electronically Signed By:Radha Mccoy LCSW Case Management Discharge Plan Note Case Management Discharge Discharge Order Complete? Answers: Yes Patient to Obtain Answers: via Family Medications Transportation Arranged Answers: Family/Friends Transport will Pick (Date 10/19/2017 12:00 AM & Time) Family Notified Answers: Yes Notes: Daughter to transport Discharge Comments Notes: Patient has been discharged. At his baseline/Therapies. Lives with daughter and has an at assisted living home director. No other needs at this time. Date Signed: 10/20/2017 04:16 PM Electronically Signed By:Mica Velasquez LCSW Intervention Information Intervention Type:*ZARAGOZA-Signed Date of Service:10/15/2017 11:32 AM Patient Type:Observation Staff Member:Gabbie Rosado Hours: Discipline: Severity: Comment:
== END 2017-10-19 14:15 | disposition home or self-care (01) | DRG 193 ==
LOC: F3N 16:05 → OBSVTOIN 10-15 15:36 → F1N 10-15 18:01
PROVIDERS: ADMIT Student in an Organized Health Care Education/Training Program; ATTEND Student in an Organized Health Care Education/Training Program
DX: J10.1 Influenza due to other identified influenza virus with other respiratory manifestations (principal); J44.1 Chronic obstructive pulmonary disease with (acute) exacerbation; J20.8 Acute bronchitis due to other specified organisms; J96.01 Acute respiratory failure with hypoxia; I80.9 Phlebitis and thrombophlebitis of unspecified site; I13.2 Hypertensive heart and chronic kidney disease with heart failure and with stage 5 chronic kidney disease, or end stage renal disease; N18.6 End stage renal disease; I50.30 Unspecified diastolic (congestive) heart failure; E78.5 Hyperlipidemia, unspecified; N40.0 Benign prostatic hyperplasia without lower urinary tract symptoms; Z96.641 Presence of right artificial hip joint; Z87.442 Personal history of urinary calculi; Z87.440 Personal history of urinary (tract) infections
CPT/HCPCS: 97161-GP; 97165-GO; G0378; G8978-GP-CI; G8979-GP-CI; G8980-GP-CI; G8987-GO-CI; G8988-GO-CI; G8989-GO-CI; J7512; J7613

== ENCOUNTER 2017-12-30 11:15 | Emergency (ER) | payer OTHER, MEDICARE ==
--- NOTE | 2017-12-30 12:08 | EDPHY ---
General Time Seen by Provider: 12/30/17 11:52 Narrative: CHIEF COMPLAINT: Fever, possible dehydration, diarrhea, cough HISTORY OF PRESENT ILLNESS: Patient presents with daughter and caregiver at bedside. The daughter reports that he has been "sick" since Saturday. She reports intermittent fever with a T-max of a 102 by in for read the monitor. He has had cough that has been productive with multi colored sputum. He has had no chest pain or shortness of breath. No abdominal pain. No urinary complaints. He has reportedly felt very weak over the past few days and she is concerned that he has become dehydrated. He also had 1 episode "explosive diarrhea." This is described as watery diarrhea. He takes vancomycin by mouth every 3 days due to recurrent C difficile colitis, last episode greater than 1 year ago. No recent admissions to the hospital. No recent antibiotics other than that. Contacted primary care physician today and they recommended he come to this facility for further care. REVIEW OF SYSTEMS: Ten systems reviewed and are negative unless otherwise noted in the HPI PCP: Dr. Berrios SPECIALISTS: Multiple PAST MEDICAL HISTORY: End-stage renal disease, hypertension, dyslipidemia, nephrolithiasis, UTIs, recurrent C diff, cataracts PAST SURGICAL HISTORY: No recent surgeries SOCIAL HISTORY: Nonsmoker. Quit 40 years ago. Lives with his daughter here in [place]. 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 No erythema or edema. Airway widely patent Neck: Normal inspection, supple, non-tender Respiratory: Mild rhonchi, left greater than right. No consolidation or crackles. No diminishment. No wheezing Cardiovascular: Regular rate and rhythm. No murmur Gastrointestinal: Abdomen is soft and nondistended. No tenderness in the 4 quadrants. Bowel sounds are auscultated in all 4 quadrants Back: non-tender, no bony abnormalities Neurological: A&O, nonfocal, strength is 4-5 in all 4 extremities. No pronator drift. No tremor. Skin: Warm and dry, no rash no petechiae or purpura Extremities: Nontender, no pedal edema Psychiatric: Mood and affect normal DIFFERENTIAL DIAGNOSES: Including but not limited to dehydration, UTI, pneumonia, bronchitis, C diff, gastroenteritis, weakness MDM: 12:05 p.m. Generalized weakness with some fever, cough and 1 episode of diarrhea today. He has no chest pain of any kind. No shortness of breath. Lungs are suspicious for bronchitis versus pneumonia. His oxygenation is normal on room air. I have ordered laboratory studies, urinalysis and chest x-ray. He does have recurrent C diff in the past with chronic, every 3rd day vancomycin by mouth. He is in no acute distress. He does not meet SIRS criteria 1:15 p.m. CBC is unremarkable. Chemistry does reveal chronic, baseline creatinine that is elevated 2.5. This is unchanged from the most recent 5 values. Chest x-ray and urinalysis pending. 1:45 p.m. Patient re-evaluated. He says he is feeling better after the IV fluid. He has had 3 bowel movements, 1 of which was sent for or gastro pathogen panel. This is pending. 2:00 p.m. Urinalysis unremarkable. Gastro pathogen panel is pending. 3:20 p.m. I have discussed the test with Elisabet and microbiology. She says that tested just now completed and has no organisms detected. 3:40 p.m. Patient has been ambulating in the griffith without difficulty and has tolerated this well. I have re-evaluated at this time he would like to be discharged home. I do feel he is stable for discharge home at this time. His director clinical applications is with him and they have instructions to contact primary care physician today for further care this week. They have strict ED precautions. At this time he is stable for discharge home. SUPERVISION: Patient was independently examined, but I discussed the case with my secondary supervising physician Dr. Guardado - Diagnostics Imaging Results: Imaging Impressions Chest X-Ray 12/30/17 12:07 Impression: No pneumonia identified. - History Smoking Status: Former smoker - Objective Vital Signs: Initial Vital Signs Temperature (C) 97.5 F 12/30/17 11:25 Heart Rate 71 12/30/17 11:25 Respiratory Rate 20 12/30/17 11:25 Blood Pressure 112/68 12/30/17 11:25 O2 Sat (%) 92 12/30/17 11:25 O2 Delivery Mode Room Air Allergies/Adverse Reactions: BRIAN Inhibitors Allergy (Severe, Verified 03/19/18 11:20) Swelling/neck,face,throat furosemide [From Lasix] Allergy (Intermediate, Verified 12/30/17 11:20) Rash Home Medications: Medication Instructions Recorded Aspirin [Ecotrin] 81 mg PO MWF@2100 04/05/12 Fenofibrate [Tricor 145 mg (*)] 145 mg PO DAILY 04/05/12 amLODIPine BESYLATE [Norvasc 5 mg 5 mg PO BID@08,12 04/05/12 (*)] Ezetimibe [Zetia 10 MG (*)] 10 mg PO DAILY 12/28/13 Bimatoprost 0.01% [Lumigan 0.01% 1 drops EACHEYE HS 05/04/16 (*)] Tamsulosin HCl [Flomax 0.4 MG (*)] 0.8 mg PO DAILY@18 05/04/16 hydrALAZINE [Apresoline] 62.5 mg PO TID 05/04/16 Temazepam [Restoril 15 MG (*)] 15 mg PO HS PRN #0 cap 05/10/16 B,C/Ferrous Fum/FA/D3/Zinc Ox 2 each PO DAILY 12/05/16 [Prorenal Multivitamin Tablet] Psyllium Husk (with Sugar) 1 packet PO DAILY 12/05/16 [Metamucil Packet] Betamethasone Clari 0.1% 1 elizabeth TP TID 06/09/17 [Betamethasone Clari 0.1% (*)] Vancomycin [Vancomycin (*)] 250 mg PO DAILY 06/09/17 Acetaminophen [Tylenol 325mg (*)] 650 mg PO Q6 PRN 10/14/17 Albuterol [Proventil Neb] 3 ml IH Q6 PRN 10/14/17 Brimonidine/Timolol [Combigan (*)] 1 drops EACHEYE BID 10/14/17 Cholecalciferol Vit D3 [Vitamin D3 2,000 units PO DAILY 10/14/17 2000 units tab (OTC)] Herbals/Supplements -Info Only 1 ea PO DAILY 10/14/17 Ranitidine HCl [Zantac] 150 mg PO HS 10/14/17 Ipratropium/Albuterol [Duoneb (*)] 3 ml IH Q6H PRN #30 deyvial 10/19/17 Acidophilus 03/19/18 Laboratory Results: Laboratory Results 12/30/17 11:55 12/30/17 11:55 12/30/17 12/30/17 12/30/17 13:50 11:55 11:55 WBC 5.01 10^3/uL 10^3/uL (3.80-9.50) RBC 4.44 10^6/uL 10^6/uL (4.40-6.38) Hgb 13.2 g/dL L g/dL (13.7-17.5) Hct 39.7 % L % (40.0-51.0) MCV 89.4 fL fL (81.5-99.8) MCH 29.7 pg pg (27.9-34.1) MCHC 33.2 g/dL g/dL (32.4-36.7) RDW 15.6 % H % (11.5-15.2) Plt Count 229 10^3/uL 10^3/uL (150-400) MPV 9.5 fL fL (8.7-11.7) Neut % (Auto) 56.1 % % (39.3-74.2) Lymph % (Auto) 25.9 % % (15.0-45.0) [place] % (Auto) 12.4 % % (4.5-13.0) Eos % (Auto) 4.6 % % (0.6-7.6) Baso % (Auto) 0.6 % % (0.3-1.7) Nucleat RBC Rel Count 0.0 % % (0.0-0.2) Absolute Neuts (auto) 2.81 10^3/uL 10^3/uL (1.70-6.50) Absolute Lymphs (auto) 1.30 10^3/uL 10^3/uL (1.00-3.00) Absolute Monos (auto) 0.62 10^3/uL 10^3/uL (0.30-0.80) Absolute Eos (auto) 0.23 10^3/uL 10^3/uL (0.03-0.40) Absolute Basos (auto) 0.03 10^3/uL 10^3/uL (0.02-0.10) Absolute Nucleated RBC 0.00 10^3/uL 10^3/uL (0-0.01) Immature Gran % 0.4 % % (0.0-1.1) Immature Gran # 0.02 10^3/uL 10^3/uL (0.00-0.10) Sodium 138 mEq/L mEq/L (135-145) Potassium 4.6 mEq/L mEq/L (3.5-5.2) Chloride 107 mEq/L mEq/L (97-110) Carbon Dioxide 21 mEq/l L mEq/l (22-31) Anion Gap 10 mEq/L mEq/L (8-16) BUN 39 mg/dL H mg/dL (7-23) Creatinine 2.5 mg/dL H mg/dL (0.7-1.3) Estimated GFR 24 Glucose 91 mg/dL mg/dL (70-100) Calcium 8.5 mg/dL mg/dL (8.5-10.4) Lipase 38 IU/L IU/L (23-300) Urine Color YELLOW Urine Appearance CLEAR Urine pH 5.0 (5.0-7.5) Ur Specific [place] 1.009 (1.002-1.030) Urine Protein 1+ H (NEGATIVE) Urine Ketones NEGATIVE (NEGATIVE) Urine Blood NEGATIVE (NEGATIVE) Urine Nitrate NEGATIVE (NEGATIVE) Urine Bilirubin NEGATIVE (NEGATIVE) Urine Urobilinogen NEGATIVE EU EU (0.2-1.0) Ur Leukocyte Esterase NEGATIVE (NEGATIVE) Urine RBC 1-3 /hpf /hpf (0-3) Urine WBC 1-3 /hpf /hpf (0-3) Ur Epithelial Cells TRACE /lpf /lpf (NONE-1+) Urine Glucose NEGATIVE (NEGATIVE) Microbiology Results: MICROBIOLOGY 12/30/17 12:10 Stool Gastrointestinal Tract Panel (PCR) - Final No Organism Detected Departure - Departure Disposition: Home, Routine, Self-Care Clinical Impression: Weakness, Dehydration Condition: Good Instructions: Dehydration (ED), Weakness (ED) Additional Instructions: 1. Increase fluid intake slowly 2. Contact primary care physician to be seen this week 3. ED precautions as discussed Referrals: Ra Beltran MD [Medical Doctor] - As per Instructions
[2017-12-30 12:18] LABS: PLATELET COUNT 229 10^3/uL (150-400)
--- NOTE | 2017-12-30 12:34 | CPEKG ---
Heart Rate: 57 RR Interval: 1053 P-R Interval: 236 QRSD Interval: 96 QT Interval: 456 QTC Interval: 444 P Chandler: 43 QRS Chandler: 266 T Wave Chandler: 27 EKG Severity - ABNORMAL ECG - EKG Impression: SINUS RHYTHM EKG Impression: FIRST DEGREE AV BLOCK EKG Impression: CONSIDER RIGHT VENTRICULAR HYPERTROPHY EKG Impression: INFERIOR INFARCT, AGE INDETERMINATE EKG Impression: CONSIDER ANTERIOR INFARCT Electronically Signed By: Allan Howard 30-Dec-2017 17:27:03
[2017-12-30 12:57] VITALS: RESP 18
[2017-12-30 15:45] VITALS: BP 130/77; PULSE 69; TEMP 98.4; O2SAT 96
== END 2017-12-30 15:52 | disposition home or self-care (01) ==
DX: R53.1 Weakness (principal); E86.0 Dehydration; I12.0 Hypertensive chronic kidney disease with stage 5 chronic kidney disease or end stage renal disease; N18.6 End stage renal disease; Z79.82 Long term (current) use of aspirin; Z87.891 Personal history of nicotine dependence

== ENCOUNTER 2017-12-31 13:27 | Inpatient (IN) | payer OTHER, MEDICARE ==
--- NOTE | 2017-12-31 14:50 | EDPHY ---
H & P Stated Complaint: gen weakness/intermittent fever Time Seen by Provider: 12/31/17 14:29 HPI/ROS: CHIEF COMPLAINT: Referred to ED by primary care provider for intermittent fever HISTORY OF PRESENT ILLNESS: The patient is referred to the emergency department by his primary care provider for hospitalization secondary to an ongoing fever. The patient was seen in the emergency department yesterday with complaints of cough, fever and diarrhea. His workup at that point time was unremarkable. He did have a history of Clostridium difficile colitis however stool PCR yesterday demonstrated no obvious organism. His chest x-ray demonstrated no evidence of pneumonia and is urinalysis demonstrated no evidence of an infection. The patient was discharged home. He presents to the ED today secondary to ongoing fever and weakness. The patient does report that he continues to have a slight dry nonproductive cough. He denies any diarrhea today. REVIEW OF SYSTEMS: A comprehensive 10 point review of systems is otherwise negative aside from elements mentioned in the history of present illness. Source: Patient - Personal History Current Tetanus/Diphtheria Vaccine: Unsure - Medical/Surgical History Hx Asthma: No Hx Chronic Respiratory Disease: No Hx Diabetes: No Hx Cardiac Disease: Yes Hx Renal Disease: Yes Hx Cirrhosis: No Hx Alcoholism: No Hx HIV/AIDS: No Hx Splenectomy or Spleen Trauma: No Other PMH: MEDICAL- ESRD, HTN, HLD, KIDNEY STONES, UTI. SURGICAL- LITHOTRIPSY, CATARACT/renal failure - Social History Smoking Status: Former smoker - Physical Exam Exam: General Appearance: Elderly male, kyphotic, sitting in wheelchair Eyes: Pupils equal and round no pallor or injection ENT, Mouth: Mucous membranes moist Respiratory: There are no retractions, lungs are clear to auscultation fine crackles right lung base Cardiovascular: Regular rate and rhythm Gastrointestinal: Abdomen is soft and nontender, no masses, bowel sounds normal Neurological: A&O, normal motor function, normal sensory exam, normal cranial nerves Skin: Warm and dry, no rashes Musculoskeletal: Neck is supple nontender Extremities: symmetrical, full range of motion Constitutional: Initial Vital Signs Temperature (C) 36.6 C 12/31/17 13:47 Heart Rate 64 12/31/17 13:47 Respiratory Rate 20 12/31/17 13:47 Blood Pressure 99/51 L 12/31/17 13:47 O2 Sat (%) 93 12/31/17 13:47 O2 Delivery Mode Room Air Allergies/Adverse Reactions: BRIAN Inhibitors Allergy (Severe, Verified 12/31/17 13:44) Swelling/neck,face,throat furosemide [From Lasix] Allergy (Intermediate, Verified 12/31/17 13:44) Rash Home Medications: Medication Instructions Recorded Aspirin [Ecotrin] 81 mg PO MWF@2100 04/05/12 Fenofibrate [Tricor 145 mg (*)] 145 mg PO DAILY 04/05/12 amLODIPine BESYLATE [Norvasc 5 mg 5 mg PO BID@,04/05/12 (*)] Ezetimibe [Zetia 10 MG (*)] 10 mg PO DAILY 12/28/13 Bimatoprost 0.01% [Lumigan 0.01% 1 drops EACHEYE HS 05/04/16 (*)] Tamsulosin HCl [Flomax 0.4 MG (*)] 0.8 mg PO DAILY@18 05/04/16 hydrALAZINE [Apresoline] 62.5 mg PO TID 05/04/16 Temazepam [Restoril 15 MG (*)] 15 mg PO HS PRN #0 cap 05/10/16 B,C/Ferrous Fum/FA/D3/Zinc Ox 2 each PO DAILY 12/05/16 [Prorenal Multivitamin Tablet] Psyllium Husk (with Sugar) 1 packet PO DAILY 12/05/16 [Metamucil Packet] Betamethasone Clari 0.1% 1 eliazbeth TP TID 06/09/17 [Betamethasone Clari 0.1% (*)] Vancomycin [Vancomycin (*)] 250 mg PO DAILY 06/09/17 Acetaminophen [Tylenol 325mg (*)] 650 mg PO Q6 PRN 10/14/17 Albuterol [Proventil Neb] 3 ml IH Q6 PRN 10/14/17 Brimonidine/Timolol [Combigan (*)] 1 drops EACHEYE BID 10/14/17 Cholecalciferol Vit D3 [Vitamin D3 2,000 units PO DAILY 10/14/17 2000 units tab (OTC)] Herbals/Supplements -Info Only 1 ea PO DAILY 10/14/17 Ranitidine HCl [Zantac] 150 mg PO HS 10/14/17 Ipratropium/Albuterol [Duoneb (*)] 3 ml IH Q6H PRN #30 deyvial 10/19/17 Acidophilus 12/30/17 Medical Decision Making - Diagnostics Imaging Results: Imaging Impressions Chest X-Ray 12/31/17 14:31 Impression: 1. No active cardiopulmonary disease seen. 2. Soft tissue thickening right lower neck to upper superior mediastinum suggestive of goiter. If indicated, consider confirmation with thyroid ultrasound.. ED Course/Re-evaluation: Id the patient's past medical records including his ED workup from yesterday. The patient had an IV established. He had blood cultures x2 obtained. Patient is afebrile in the emergency department. He is well-appearing. Given his ongoing cough a chest x-ray was repeated and it demonstrates no evidence of an obvious pneumonia. The patient had a negative urinalysis yesterday. An influenza swab has been sent. Dr. Ranjeet Beltran has requested the patient be admitted to the hospital for observation. Consultation was made with Dr. Shields from the hospitalist service. At this point time I see no obvious indication for antibiotics. Plan will be for admission secondary to his weakness and febrile illness. Differential Diagnosis: Differential diagnosis considered includes asthma, bronchitis, pneumonia, Clostridium difficile colitis, dehydration, worsening renal failure - Data Points Laboratory Results: Laboratory Results 12/31/17 15:00 12/31/17 15:00 12/31/17 12/31/17 15:00 15:00 WBC 9.18 10^3/uL 10^3/uL (3.80-9.50) RBC 4.63 10^6/uL 10^6/uL (4.40-6.38) Hgb 13.8 g/dL g/dL (13.7-17.5) Hct 41.3 % % (40.0-51.0) MCV 89.2 fL fL (81.5-99.8) MCH 29.8 pg pg (27.9-34.1) MCHC 33.4 g/dL g/dL (32.4-36.7) RDW 15.7 % H % (11.5-15.2) Plt Count 258 10^3/uL 10^3/uL (150-400) MPV 9.5 fL fL (8.7-11.7) Neut % (Auto) 69.7 % % (39.3-74.2) Lymph % (Auto) 21.1 % % (15.0-45.0) [place] % (Auto) 6.8 % % (4.5-13.0) Eos % (Auto) 0.9 % % (0.6-7.6) Baso % (Auto) 0.5 % % (0.3-1.7) Nucleat RBC Rel Count 0.0 % % (0.0-0.2) Absolute Neuts (auto) 6.40 10^3/uL 10^3/uL (1.70-6.50) Absolute Lymphs (auto) 1.94 10^3/uL 10^3/uL (1.00-3.00) Absolute Monos (auto) 0.62 10^3/uL 10^3/uL (0.30-0.80) Absolute Eos (auto) 0.08 10^3/uL 10^3/uL (0.03-0.40) Absolute Basos (auto) 0.05 10^3/uL 10^3/uL (0.02-0.10) Absolute Nucleated RBC 0.00 10^3/uL 10^3/uL (0-0.01) Immature Gran % 1.0 % % (0.0-1.1) Immature Gran # 0.09 10^3/uL 10^3/uL (0.00-0.10) Sodium 141 mEq/L mEq/L (135-145) Potassium 4.7 mEq/L mEq/L (3.3-5.0) Chloride 106 mEq/L mEq/L (97-110) Carbon Dioxide 20 mEq/l L mEq/l (22-31) Anion Gap 15 mEq/L mEq/L (8-16) BUN 40 mg/dL H mg/dL (7-23) Creatinine 2.7 mg/dL H mg/dL (0.7-1.3) Estimated GFR 22 Glucose 86 mg/dL mg/dL (70-100) Calcium 8.7 mg/dL mg/dL (8.5-10.4) Departure - Departure Disposition: [facility] Inpatient Acute Clinical Impression: Febrile illness, acute, Weakness, Chronic kidney disease Condition: Fair
[2017-12-31 15:08] LABS: PLATELET COUNT 258 10^3/uL (150-400)
--- NOTE | 2017-12-31 15:57 | PDGENHP ---
History and Physical - Chief Complaint fever - History of Present Illness 87 y/o male with mult medical problems developed fever and painful cough on Sat. Seen in ED yesterday and sent home. This morning awoke with fever of 101.7 and was instructed to return to the ED by PCP. Poor appetite. Reports nonproductive cough. Feels very weak. Lives in [place] with daughter and grandson. History Information - Allergies/Home Medication List Allergies/Adverse Reactions: BRIAN Inhibitors Allergy (Severe, Verified 12/31/17 13:44) Swelling/neck,face,throat furosemide [From Lasix] Allergy (Intermediate, Verified 12/31/17 13:44) Rash Home Medications: Fenofibrate [Tricor 145 mg (*)] 145 mg PO DAILY 04/05/12 [Last Taken 12/31/17] amLODIPine BESYLATE [Norvasc 5 mg (*)] 5 mg PO BID@08,12 04/05/12 [Last Taken ] Ezetimibe [Zetia 10 MG (*)] 10 mg PO DAILY 12/28/13 [Last Taken 12/31/17] Bimatoprost 0.01% [Lumigan 0.01% (*)] 1 drops EACHEYE HS 05/04/16 [Last Taken ] Tamsulosin HCl [Flomax 0.4 MG (*)] 0.8 mg PO DAILY@18 05/04/16 [Last Taken 12/30] hydrALAZINE [Apresoline] 62.5 mg PO TID 05/04/16 [Last Taken 12/31/17] B,C/Ferrous Fum/FA/D3/Zinc Ox [Prorenal Multivitamin Tablet] 2 each PO DAILY [Last Taken 12/31/17] Psyllium Husk (with Sugar) [Metamucil Packet] 1 packet PO DAILY 12/05/16 [Last Taken 12/30/17] Betamethasone Clari 0.1% [Betamethasone Clari 0.1% (*)] 1 elizabeth TP TID 06/09/17 [Last Taken 12/31/17] Vancomycin [Vancomycin (*)] 250 mg PO Q3D 06/09/17 [Last Taken 12/29/17] Acetaminophen [Tylenol 325mg (*)] 650 mg PO Q6 PRN 10/14/17 [Last Taken 09:00] Albuterol [Proventil Neb] 3 ml IH Q6 PRN 10/14/17 [Last Taken 12/31/17 09:00] Brimonidine/Timolol [Combigan (*)] 1 drops EACHEYE BID 10/14/17 [Last Taken ] Cholecalciferol Vit D3 [Vitamin D3 2000 units tab (OTC)] 2,000 units PO DAILY [Last Taken 12/31/17] Herbals/Supplements -Info Only 1 ea PO DAILY 10/14/17 [Last Taken 12/31/17] Ranitidine HCl [Zantac] 150 mg PO HS 10/14/17 [Last Taken 12/30/17] Aspirin EC [Aspirin EC 81 mg (*)] 81 mg PO MWF 12/31/17 [Last Taken 12/30/17] - Social History Smoking Status: Former smoker Review of Systems Review of Systems: Physical Exam Physical Exam: Temp Pulse Resp BP Pulse Ox 36.6 C 64 20 99/51 L 93 12/31/17 13:47 12/31/17 13:47 12/31/17 13:47 12/31/17 13:47 12/31/17 13:47 Lab Data & Imaging Review 12/31/17 15:00 12/31/17 15:00 WBC 9.18 10^3/uL (3.80-9.50) 12/31/17 15:00 RBC 4.63 10^6/uL (4.40-6.38) 12/31/17 15:00 Hgb 13.8 g/dL (13.7-17.5) 12/31/17 15:00 Hct 41.3 % (40.0-51.0) 12/31/17 15:00 MCV 89.2 fL (81.5-99.8) 12/31/17 15:00 MCH 29.8 pg (27.9-34.1) 12/31/17 15:00 MCHC 33.4 g/dL (32.4-36.7) 12/31/17 15:00 RDW 15.7 % (11.5-15.2) H 12/31/17 15:00 Plt Count 258 10^3/uL (150-400) 12/31/17 15:00 MPV 9.5 fL (8.7-11.7) 12/31/17 15:00 Neut % (Auto) 69.7 % (39.3-74.2) 12/31/17 15:00 Lymph % (Auto) 21.1 % (15.0-45.0) 12/31/17 15:00 [place] % (Auto) 6.8 % (4.5-13.0) 12/31/17 15:00 Eos % (Auto) 0.9 % (0.6-7.6) 12/31/17 15:00 Baso % (Auto) 0.5 % (0.3-1.7) 12/31/17 15:00 Nucleat RBC Rel Count 0.0 % (0.0-0.2) 12/31/17 15:00 Absolute Neuts (auto) 6.40 10^3/uL (1.70-6.50) 12/31/17 15:00 Absolute Lymphs (auto) 1.94 10^3/uL (1.00-3.00) 12/31/17 15:00 Absolute Monos (auto) 0.62 10^3/uL (0.30-0.80) 12/31/17 15:00 Absolute Eos (auto) 0.08 10^3/uL (0.03-0.40) 12/31/17 15:00 Absolute Basos (auto) 0.05 10^3/uL (0.02-0.10) 12/31/17 15:00 Absolute Nucleated RBC 0.00 10^3/uL (0-0.01) 12/31/17 15:00 Immature Gran % 1.0 % (0.0-1.1) 12/31/17 15:00 Immature Gran # 0.09 10^3/uL (0.00-0.10) 12/31/17 15:00 Sodium 141 mEq/L (135-145) 12/31/17 15:00 Potassium 4.7 mEq/L (3.3-5.0) 12/31/17 15:00 Chloride 106 mEq/L (97-110) 12/31/17 15:00 Carbon Dioxide 20 mEq/l (22-31) L 12/31/17 15:00 Anion Gap 15 mEq/L (8-16) 12/31/17 15:00 BUN 40 mg/dL (7-23) H 12/31/17 15:00 Creatinine 2.7 mg/dL (0.7-1.3) H 12/31/17 15:00 Estimated GFR 22 12/31/17 15:00 Glucose 86 mg/dL (70-100) 12/31/17 15:00 Calcium 8.7 mg/dL (8.5-10.4) 12/31/17 15:00 Assessment & Plan Assessment: Chronic kidney disease (Acute) Febrile illness, acute (Acute) Weakness (Acute)
[2017-12-31] MEDS ORDERED: OSELTAMIVIR PHOSPHATE 75 MG CAP PO ONE (16:12)
[2017-12-31] MEDS ORDERED: IPRATROPIUM/ALBUTEROL 3 ML DEYVIAL IH PRN ×2 (16:56→16:57)
[2017-12-31] MEDS ORDERED: BENZONATATE 100 MG CAP PO PRN (16:56)
[2017-12-31] MEDS ORDERED: ACETAMINOPHEN 325 MG TAB PO PRN (16:56)
[2017-12-31] MEDS ORDERED: TEMAZEPAM 15 MG CAP PO PRN (16:57)
--- NOTE | 2017-12-31 17:12 | HOSPPROG ---
Hospitalist Progress Note Assessment/Plan: Addendum I discussed the case with Dr. Beltran who has informed me that the patient and his family would like to not use tamiflu given his renal function. I think this is reasonable give his symptoms started greater than 48 hours ago. Will closely monitor Objective: Vital Signs Temp Pulse Resp BP Pulse Ox 36.3 C 58 L 20 125/71 H 92 12/31/17 16:57 12/31/17 16:57 12/31/17 16:57 12/31/17 16:57 12/31/17 16:57 ICD10 Worksheet Patient Problems: Problems Problem Status Onset Chronic kidney disease Acute Febrile illness, acute Acute Weakness Acute Hyperplasia of prostate Active Renal failure syndrome Active Retention of urine Active Urinary tract infectious disease Active chronic renal Active C. difficile diarrhea Acute ~12/07/16 Diarrhea Acute Fall Acute Fracture of femoral neck, right, closed Acute chronic disease mgmt/transitional care Acute
--- NOTE | 2017-12-31 17:17 | GHP ---
[f rep st] HISTORY AND PHYSICAL DATE OF ADMISSION: 12/31/2017 CHIEF COMPLAINT: Fever and malaise. HISTORY OF PRESENT ILLNESS: This 87-year-old male who is a patient eusebio Oakes has been sick since Saturday. The patient states he has had a fever as well as a nonproductive c ough. He was seen in the emergency department yesterday and was ultimately sent home. His temperatu re this morning was 101.7. He has not been eating well. He feels very weak. His primary care jaya méndez instructed him to come back to the emergency department to be admitted. The patient lives in [facility] with his daughter and grandson. PAST MEDICAL HISTORY: 1. Hospitalization in October 2017 for influenza. 2. Chronic kidney disease. 3. C difficile. 4. Constipation. 5. Hypertension. 6. BPH. 7. Pulmonary hypertension. PAST SURGICAL HISTORY: 1. Right total hip arthroplasty. 2. Cholecystectomy. 3. Cataract surgery. HOME MEDICATIONS: Refer to [employer] for details. ALLERGIES: BRIAN inhibitors and Lasix. SOCIAL HISTORY: He lives with his daughter and grandson. 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 FAMILY HISTORY: Reviewed and noncontributory. REVIEW OF SYSTEMS: Comprehensive 10-point review of systems was done and is negative, except for as mentioned in the HPI. PHYSICAL EXAM: VITAL SIGNS: Blood pressure 124/64, pulse 61, respiratory rate 18, O2 saturation 94% on room air. Temperature afebrile. GENERAL: No acute distress. HEAD: Normocephalic atraumatic. EYES: PERRLA. Sclerae anicteric. MOUTH: Moist mucous membranes. NECK: Supple. No lymphadenopa thy. CARDIOVASCULAR: S1, S2. No JVD. No lower extremity edema. PULMONARY: Bilateral fine crackl es. No wheezes or rhonchi. ABDOMEN: Soft, nontender, nondistended. No guarding or rebound tendern ess. Normoactive bowel sounds. EXTREMITIES: No clubbing or cyanosis. NEURO: Cranial nerves 2-12 grossly intact. No focal motor or sensory deficits. SKIN: Clear, no rashes. DIAGNOSTICS: GI pathogen panel done yesterday was negative. Blood cultures are currently pending. WBC is 9.18, hemoglobin 13.8, hematocrit 41.3, platelets 258. Sodium 141, potassium 4.7, chloride 10 6, CO2 20, BUN 40, creatinine 2.7, glucose 86. UA done yesterday was unremarkable. Influenza swab done today was positive for flu B. ASSESSMENT AND PLAN: This is an 87-year-old male presenting with fever, nonproductive cough, found t o have: 1. Influenza B. Plan: The patient will be started on renally dosed Tamiflu. He will be closely mo nitored for deterioration of his symptoms. 2. [id number] kidney disease. Plan: We will avoid nephrotoxins and monitor his renal functio n. The patient will be admitted to the hospital under inpatient status as I suspect he will require grea ter than 2 midnights to recover from the flu, given his multiple medical comorbidities. /[id number]/MODL
[2017-12-31] MEDS ORDERED: TAMSULOSIN HCL 0.4 MG CAP PO SCH (18:00)
[2017-12-31] MEDS: BIMATOPROST 0.01% 2.5 ML OPHT.BTL EACHEYE SCH (20:57)
[2017-12-31] MEDS: BETAMETHASONE VAL 0.1% 15 GM CREAM TP SCH (20:59)
[2017-12-31] MEDS: FAMOTIDINE 20 MG TAB PO SCH (21:07)
[2017-12-31] MEDS: hydrALAZINE 25 MG TAB PO SCH (21:07)
[2017-12-31] MEDS: BRIMONIDINE/TIMOLOL 5 ML OPHT.BTL EACHEYE SCH (21:08)
[2018-01-01] MEDS ORDERED: ASPIRIN EC 81 MG TAB PO SCH (08:00)
[2018-01-01] MEDS: TAMSULOSIN HCL 0.4 MG CAP PO SCH (08:02)
[2018-01-01] MEDS: hydrALAZINE 25 MG TAB PO SCH ×3 (08:03→21:09)
[2018-01-01] MEDS: PSYLLIUM METAMUCIL 1 PKT PO SCH (08:04)
[2018-01-01] MEDS: NEPHROVITE FOLIC ACID/VIT B&C 1 TAB PO SCH (08:04)
[2018-01-01] MEDS: amLODIPine BESYLATE 5 MG TAB PO SCH ×2 (08:04→12:41)
[2018-01-01] MEDS: ENOXAPARIN 30 MG/0.3 ML SYR SC SCH (08:04)
[2018-01-01] MEDS: OSELTAMIVIR 6 MG/ML UDSYR PO SCH ×2 (08:04→09:08)
[2018-01-01] MEDS: BRIMONIDINE/TIMOLOL 5 ML OPHT.BTL EACHEYE SCH ×2 (08:08→14:14)
[2018-01-01] MEDS ORDERED: OSELTAMIVIR PHOSPHATE 75 MG CAP PO SCH (09:00)
[2018-01-01] MEDS: BETAMETHASONE VAL 0.1% 15 GM CREAM TP SCH ×3 (09:08→21:12)
--- NOTE | 2018-01-01 10:40 | PDMN ---
Medical Necessity Medical necessity: est los>2mn for influenza B, w/fever, poor oral intake and weakness, acute on chronic kidney disease; admit for close monitoring, Tamiflu; comorbid advanced age, CKD, HTN, pulmonary htn, hx influenza Oct 2017, c diff; per order and H&P 12/31/17
[2018-01-01] MEDS ORDERED: ALBUTEROL 3 ML DEYVIAL IH PRN (11:33)
--- NOTE | 2018-01-01 11:41 | HOSPPROG ---
Hospitalist Progress Note Assessment/Plan: 87 yo M with w/ hx of CKD and presumed COPD as well as recent influenza A infection admitted with influenza B # influenza B: second time with flu this winter, first A now B, despite getting vaccination. CXR personally reviewed and no acute cardiopulmonary abnormalities appreciated. Patient declining tamiflu. # acute hypoxic respiratory failure: requiring 2L of oxygen to maintain o2 sats in low 90s, at baseline does not require o2. Suspect underlying copd as next. Continue nebs, IS, ambulation # copd with acute exacerbation: as above patient with 40 pack year smoking hx and presumed underlying copd, today with dec bs throughout all lung clark. Will continue scheduled nebs, prn albuterol. Will hold off on steroids for now. 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 Old records reviewed and summarized as above. Subjective: no significnat overnight events, patient currently feeling a bit better than yesterday but remains weak and very sob with exertion Objective: Vital Signs Temp Pulse Resp BP Pulse Ox 36.2 C 61 18 125/65 H 92 01/01/18 11:04 01/01/18 11:04 01/01/18 11:04 01/01/18 11:04 01/01/18 11:04 Laboratory Results 01/01/18 04:47 12/31/17 01/01/18 01/02/18 05:59 05:59 05:59 Intake Total 200 Output Total 100 125 Balance -100 75 awake alert nad anicteric op clear rrr no mrg dec bs throughout, scattered wheeze soft nt nd no cce warm dry well perfused oriented appropriate ICD10 Worksheet Patient Problems: Problems Problem Status Onset Febrile illness, acute Acute chronic disease mgmt/transitional care Acute C. difficile diarrhea Acute ~12/07/16 chronic renal Active Hyperplasia of prostate Active Retention of urine Active Renal failure syndrome Active Urinary tract infectious disease Active Chronic kidney disease Acute Fall Acute Fracture of femoral neck, right, closed Acute Weakness Acute Diarrhea Acute
[2018-01-01] MEDS: IPRATROPIUM/ALBUTEROL 3 ML DEYVIAL IH SCH ×3 (12:04→22:12)
--- NOTE | 2018-01-01 12:40 | ASMTCMCOM ---
CM Note CM Note Notes: Patient admitted with Influenza B. He lives with his daughter. They have a caregiver 3-5x week who has been with the family for 15 years. Patient has had skilled home health in the past, so they are amenable to that if it's recommended. PT/OT ordered and will evaluation patient soon. Case Management will follow for discharge needs. Date Signed: 01/01/2018 12:40 PM Electronically Signed By:Kiki Garcia RN
[2018-01-01] MEDS: FAMOTIDINE 20 MG TAB PO SCH (21:09)
[2018-01-01] MEDS: BIMATOPROST 0.01% 2.5 ML OPHT.BTL EACHEYE SCH (21:10)
[2018-01-02] MEDS: IPRATROPIUM/ALBUTEROL 3 ML DEYVIAL IH SCH ×2 (05:05→10:37)
[2018-01-02 07:38] VITALS: BP 141/70; TEMP 97.8
[2018-01-02] MEDS: ENOXAPARIN 30 MG/0.3 ML SYR SC SCH (08:14)
[2018-01-02] MEDS: NEPHROVITE FOLIC ACID/VIT B&C 1 TAB PO SCH (08:15)
[2018-01-02] MEDS: hydrALAZINE 25 MG TAB PO SCH (08:15)
[2018-01-02] MEDS: TAMSULOSIN HCL 0.4 MG CAP PO SCH (08:15)
[2018-01-02] MEDS: amLODIPine BESYLATE 5 MG TAB PO SCH (08:16)
[2018-01-02] MEDS: PSYLLIUM METAMUCIL 1 PKT PO SCH (08:17)
[2018-01-02] MEDS ORDERED: CHOLECALCIFEROL VIT D3 2,000 UNITS TAB/CAP PO SCH (09:00)
[2018-01-02] MEDS ORDERED: EZETIMIBE 10 MG TAB PO SCH (09:00)
[2018-01-02] MEDS ORDERED: BRIMONIDINE/TIMOLOL 5 ML OPHT.BTL EACHEYE SCH (09:00)
[2018-01-02] MEDS ORDERED: FENOFIBRATE 145 MG TAB PO SCH (09:00)
--- NOTE | 2018-01-02 09:58 | PDIAF ---
- Diagnosis Diagnosis: influenza b Code Status: Do Not Resuscitate - Medication Management Discharge Medications: Medications to Continue on Transfer Fenofibrate [Tricor 145 mg (*)] 145 mg PO DAILY 04/05/12 [Last Taken 12/31/17] amLODIPine BESYLATE [Norvasc 5 mg (*)] 5 mg PO BID@08,12 04/05/12 [Last Taken ] Ezetimibe [Zetia 10 MG (*)] 10 mg PO DAILY 12/28/13 [Last Taken 12/31/17] Bimatoprost 0.01% [Lumigan 0.01% (*)] 1 drops EACHEYE HS 05/04/16 [Last Taken ] Tamsulosin HCl [Flomax 0.4 MG (*)] 0.8 mg PO DAILY 05/04/16 [Last Taken 12/30/17 ] hydrALAZINE [Apresoline] 62.5 mg PO TID 05/04/16 [Last Taken 12/31/17] Temazepam [Restoril 15 MG (*)] 15 mg PO HS PRN #0 cap 05/10/16 [Last Taken 12/30] B,C/Ferrous Fum/FA/D3/Zinc Ox [Prorenal Multivitamin Tablet] 2 each PO DAILY [Last Taken 12/31/17] Psyllium Husk (with Sugar) [Metamucil Packet] 1 packet PO DAILY 12/05/16 [Last Taken 12/30/17] Betamethasone Clari 0.1% [Betamethasone Clari 0.1% (*)] 1 elizabeth TP TID 06/09/17 [Last Taken 12/31/17] Vancomycin [Vancomycin (*)] 250 mg PO Q3D 06/09/17 [Last Taken 12/29/17] Acetaminophen [Tylenol 325mg (*)] 650 mg PO Q6 PRN 10/14/17 [Last Taken 09:00] Albuterol [Proventil Neb] 3 ml IH Q6 PRN 10/14/17 [Last Taken 12/31/17 09:00] Brimonidine/Timolol [Combigan (*)] 1 drops EACHEYE BID 10/14/17 [Last Taken ] Cholecalciferol Vit D3 [Vitamin D3 2000 units tab (OTC)] 2,000 units PO DAILY [Last Taken 12/31/17] Herbals/Supplements -Info Only 1 ea PO DAILY 10/14/17 [Last Taken 12/31/17] Ranitidine HCl [Zantac] 150 mg PO HS 10/14/17 [Last Taken 12/30/17] Ipratropium/Albuterol [Duoneb (*)] 3 ml IH Q6H PRN #30 deyvial 10/19/17 [Last Taken 12/31/17 09:00] Aspirin EC [Aspirin EC 81 mg (*)] 81 mg PO MWF 12/31/17 [Last Taken 12/30/17] Discharge Medications: Refer to the Discharge Home Medication list for PRN reason. - Orders Services needed: Home Care, Registered Nurse, Physical Therapy, Occupational Therapy Home Care Face to Face: I certify that this patient was under my care and that I had the required [id number] encounter meeting the encounter requirements on the discharge day. My findings support the fact that the patient is homebound as defined in Home Care Face to Face Continued: [facility] Chapter 7 Medicare Benefits Manual 30.1.1 , The condition of the patient is such that there exists a normal inability to leave home and consequently, leaving home would require a considerable and taxing effort. Isolation Type: Droplet Isolation Diet Recommendation: no restrictions on diet Diet Texture: Regular Texture Diet - Follow Up Care Current Providers and Referrals: Ra Beltran MD [Primary Care Provider] - As per Instructions
[2018-01-02 10:48] VITALS: PULSE 61; RESP 18; O2SAT 94
[2018-01-02] MEDS: BETAMETHASONE VAL 0.1% 15 GM CREAM TP SCH (11:02)
--- NOTE | 2018-01-02 11:44 | ASMTLACE ---
LACE Length of stay for Answers: 2 days current admission Acuity / Level of Answers: Yes Care: Did the patient have an inpatient admission? Comorbidities - select Answers: Moderate or severe liver all that apply or renal disease Other Notes: HTN # of Emergency department Answers: 3-4 visits in the last 6 months Score: 13 Date Signed: 01/02/2018 11:43 AM Electronically Signed By:Kathe Arnold RN
--- NOTE | 2018-01-02 11:47 | ASMTCMCOM ---
CM Note CM Note Notes: Spoke w/MD pt going home w/home care. Spoke w/pt's dtr Isabelle pt has a career technical education instructor that is private pay and comes a couple times a week as well as a new "senior payroll administrator care" through [employer] which is also private pay. Dtr requests [facility] for skilled care. DC Plan: Homecare/ [facility] (RN/PT/OT) Date Signed: 01/02/2018 11:46 AM Electronically Signed By:Kathe Arnold RN
--- NOTE | 2018-01-02 17:07 | GDS ---
[f rep st] DISCHARGE SUMMARY DISCHARGE DIAGNOSES: Include. 1. Acute influenza B. 2. Acute hypoxic respiratory failure secondary to influenza B. 3. Acute chronic obstructive pulmonary disease exacerbation secondary to viral trigger. 4. Acute kidney injury on chronic kidney disease. 5. History of recurrent Clostridium difficile, on suppressive oral vancomycin. 6. Hyperlipidemia. 7. Benign prostatic hypertrophy. 8. Hypertension. HISTORY OF PRESENT ILLNESS: An 87-year-old male with a history of CKD and presumed COPD, as well as recent influenza A infection, who was admitted with acute influenza B. For details of the patient's initial presentation, please see the history and physical dated 12/31/2017. CONSULTATIVE SERVICES: None. PROCEDURES: None. HOSPITAL COURSE: 1. Acute hypoxic respiratory failure secondary to influenza B. The patient was provided aggressive supportive care during his hospital stay, had marked improvement in his pulmonary status, and was wea yash off oxygen the morning of disposition. Oxygen saturations are 94% on room air. The patient is b eing discharged home for ongoing recovery. 2. Influenza B, acute. Unfortunate, as the patient has additionally been infected with influenza A. He did refuse Tamiflu during this stay. Again, will need prolonged support in the home for recover y, but has made excellent progress during his 48-hour hospitalization. Patient is being discharged h ome with home health, RN, PT, OT. MEDICATIONS: At the time of disposition, please reference the med rec printed on 01/02/2018. Of not e, no changes were made to his home medications. FOLLOWUP APPOINTMENTS: Include with his primary care provider in the next 2-3 weeks for post-disposi tion followup. PENDING STUDIES: At the time of this dictation include blood cultures drawn 12/31/2017, which are pr eliminary no growth to date. I spent greater than 30 minutes in the planning and coordination of this discharge. /[id number]/MODL
[2018-01-03] MEDS ORDERED: VANCOMYCIN 125 MG/2.5 ML UDL PO SCH (08:00)
--- NOTE | 2018-01-03 17:54 | ASDISCHSUM ---
Discharge Information Plan Status:Home with Home Health Medically Cleared to Leave: Discharge Date:01/02/2018 11:40 AM CM D/C Disposition:Home Health Service ADT D/C Disposition:Home Health Service Projected Discharge Date:01/02/2018 11:00 AM Transportation at D/C:Family Discharge Delay Reason: Follow-Up Date:01/02/2018 11:00 AM Discharge Slot: Final Diagnosis: Placement Information Referral Type:*Home Health Care Services Referral ID:[id number] Provider Name:[facility] Address 1:[address] [place] [address] Address 2: City:[place] Selection Factors: State:[place] Patient Contact Information Contact Name:DOMINGO Relationship:Daughter Address: City:[place] Alternate Phone: State/Zip Code:[place] Email: Financial Information Financial Class:Medicare Primary Plan Desc:MEDICARE INPATIENT Primary Plan Number:[id number] Secondary Plan Desc:[employer]/MDR SUPPLEMENT Secondary Plan Number:[id number] Assessment Information LACE LACE Length of stay for Answers: 2 days current admission Acuity / Level of Answers: Yes Care: Did the patient have an inpatient admission? Comorbidities - select Answers: Moderate or severe liver all that apply or renal disease Other Notes: HTN # of Emergency department Answers: 3-4 visits in the last 6 months Score: 13 Date Signed: 01/02/2018 11:43 AM Electronically Signed By:Kathe Arnold RN [facility] CM Progress Note CM Note CM Note Notes: Patient admitted with Influenza B. He lives with his daughter. They have a caregiver 3-5x week who has been with the family for 15 years. Patient has had skilled home health in the past, so they are amenable to that if it's recommended. PT/OT ordered and will evaluation patient soon. Case Management will follow for discharge needs. Date Signed: 01/01/2018 12:40 PM Electronically Signed By:Kiki Garcia RN [facility] CM Progress Note CM Note CM Note Notes: Spoke w/, pt going home w/home care. Spoke w/pt's dtr Isabelle pt has a home care manager that is private pay and comes a couple times a week as well as a new "frame builder care" through [employer] which is also private pay. Dtr requests [facility] for skilled care. DC Plan: Homecare/ [facility] (RN/PT/OT) Date Signed: 01/02/2018 11:46 AM Electronically Signed By:Kathe Arnold RN Case Management Discharge Plan Note Case Management Discharge Discharge Order Complete? Answers: Yes Patient to Obtain Answers: via Family Medications Transportation Arranged Answers: Family/Friends Faxed Final Orders Answers: Yes Family Notified Answers: Yes Discharge Comments Notes: Marlen/eusebio GOYAL, final orders faxed. Rain at [facility] notified, AJ to call report. Date Signed: 01/02/2018 11:49 AM Electronically Signed By:Kathe Arnold RN Intervention Information
== END 2018-01-02 11:40 | disposition home health service (06) | DRG 193 ==
LOC: OBSVTOIN 15:26 → F3E 16:46
PROVIDERS: ADMIT Family Medicine; ATTEND Hospitalist
DX: J10.1 Influenza due to other identified influenza virus with other respiratory manifestations (principal); J96.01 Acute respiratory failure with hypoxia; J44.1 Chronic obstructive pulmonary disease with (acute) exacerbation; N17.9 Acute kidney failure, unspecified; I12.9 Hypertensive chronic kidney disease with stage 1 through stage 4 chronic kidney disease, or unspecified chronic kidney disease; N18.9 Chronic kidney disease, unspecified; E78.5 Hyperlipidemia, unspecified; N40.0 Benign prostatic hyperplasia without lower urinary tract symptoms; I27.20 Pulmonary hypertension, unspecified; Z66 Do not resuscitate
CPT/HCPCS: 97161-GP; 97165-GO; G8978-GP-CI; G8979-GP-CI; G8980-GP-CI; G8984-GO-CI; G8985-GO-CI; G8986-GO-CI; J1650; J7613